=== PATIENT | male | born 1940 | race Caucasian/White ===

== ENCOUNTER 2017-05-11 14:06 | Inpatient (IN) | payer MEDICARE ==
[~2017-05-11] VITALS: Ht 182.9 cm; Wt 81.0 kg
[~2017-05-11 14:06] MED LIST: Calcium Carbon500 MG PO; DOCU100 PO; ENOX100I SC; LIDO700A20 TOP; MILK OF MAGNESIA PO; PANT20 PO; Percocet 5-3251 EACH PO; WARF10 PO; XARELTO15 MG PO; Zestril40 MG PO
[2017-05-11 15:06] LABS: International Normalized Ratio 1.44; Prothrombin Time Results 15.1 Sec (9.7-11.5)
[2017-05-11 15:09] LABS: Alanine Aminotransfer (ALT/SGP 25 U/L (12-78); Albumin, Blood 3.7 g/dL (3.4-5.0); Alk Phos 91 U/L (50-136); Anion Gap 14 mmol/L (6-16); Aspartate Aminotrans (AST/SGOT 20 U/L (12-37); Bilirubin, Total 0.5 mg/dL (0.1-1.0); Blood Urea Nitrogen 25 mg/dL (8-24); Bun/Creatinine Ratio 25.3 (12.0-20.0); CO2, Blood 20 mmol/L (21-32); Calcium, Blood 8.9 mg/dL (8.5-10.1); Chloride, Blood 103 mmol/L (98-108); Creatinine, Blood 0.99 mg/dL (0.60-1.20); Globulin, Blood 3.6 g/dL (2.2-4.0); Glomerular Filtration Rate >60 (60-); Glucose, Blood 171 mg/dL (70-99); Potassium, Blood 3.7 mmol/L (3.5-5.5); Sodium, Blood 137 mmol/L (136-145); Total Protein, Blood 7.3 g/dL (6.4-8.2); Troponin I <0.015 ng/mL (0.000-0.040)
[2017-05-11 15:14] LABS: BASOPHILS ABSOLUTE AUTO 0.07 K/mm3 (0.00-0.23); BASOPHILS PERCENT AUTO 1 % (0-2); EOSINOPHILS ABSOLUTE AUTO 0.03 K/mm3 (0.00-0.68); EOSINOPHILS PERCENT AUTO 0 % (0-6); IMMATURE GRAN ABSOLUTE AUTO 0.05 K/mm3 (0.00-0.10); IMMATURE GRAN PERCENT AUTO 1 % (0-1); LYMPHOCYTES PERCENT AUTO 12 % (21-46); MONOCYTES ABSOLUTE AUTO 0.63 K/mm3 (0.16-1.47); MONOCYTES PERCENT AUTO 7 % (4-13); Mean Corpuscular HGB 23.1 pg (26.0-34.0); Mean Corpuscular Volume 83 fL (80-100); Mean Platelet Volume 9.4 fL (9.1-12.4); NEUTROPHILS ABSOLUTE AUTO 7.35 K/mm3 (1.96-9.15); NEUTROPHILS PERCENT AUTO 80 % (41-73); Platelet Count 452 K/mm3 (150-400); RDW Coefficient Variation 16.6 % (11.7-14.2); RDW Standard Deviation 49.2 fL (35.1-46.3); Red Blood Cell Count 2.42 M/mm3 (4.30-5.90); White Blood Cell Count 9.23 K/mm3 (4.00-11.30)
[2017-05-11 15:16] LABS: Hemoglobin 5.6 g/dL (13.5-17.5)
[2017-05-11 18:12] LABS: Thyroid Stimulating Hormone 2.89 uIU/mL (0.360-4.800)
[2017-05-12 04:46] LABS: BASOPHILS ABSOLUTE AUTO 0.04 K/mm3 (0.00-0.23); BASOPHILS PERCENT AUTO 1 % (0-2); EOSINOPHILS ABSOLUTE AUTO 0.09 K/mm3 (0.00-0.68); EOSINOPHILS PERCENT AUTO 2 % (0-6); Hematocrit 22.9 % (37.0-53.0); IMMATURE GRAN ABSOLUTE AUTO 0.02 K/mm3 (0.00-0.10); IMMATURE GRAN PERCENT AUTO 0 % (0-1); LYMPHOCYTES ABSOLUTE AUTO 1.33 K/mm3 (0.84-5.20); LYMPHOCYTES PERCENT AUTO 22 % (21-46); MONOCYTES ABSOLUTE AUTO 0.76 K/mm3 (0.16-1.47); MONOCYTES PERCENT AUTO 13 % (4-13); Mean Corpuscular HGB 25.7 pg (26.0-34.0); Mean Corpuscular HGB Conc 30.6 g/dL (31.5-36.5); Mean Corpuscular Volume 84 fL (80-100); Mean Platelet Volume 9.6 fL (9.1-12.4); NEUTROPHILS ABSOLUTE AUTO 3.73 K/mm3 (1.96-9.15); NEUTROPHILS PERCENT AUTO 63 % (41-73); Platelet Count 316 K/mm3 (150-400); RDW Coefficient Variation 17.3 % (11.7-14.2); RDW Standard Deviation 52.6 fL (35.1-46.3); Red Blood Cell Count 2.72 M/mm3 (4.30-5.90); White Blood Cell Count 5.97 K/mm3 (4.00-11.30)
[2017-05-12 05:01] LABS: Alanine Aminotransfer (ALT/SGP 17 U/L (12-78); Albumin, Blood 3.2 g/dL (3.4-5.0); Albumin/Globulin Ratio 1.1 (0.8-1.8); Alk Phos 72 U/L (50-136); Anion Gap 7 mmol/L (6-16); Aspartate Aminotrans (AST/SGOT 12 U/L (12-37); Bilirubin, Total 0.7 mg/dL (0.1-1.0); Blood Urea Nitrogen 20 mg/dL (8-24); Bun/Creatinine Ratio 23.6 (12.0-20.0); CO2, Blood 25 mmol/L (21-32); Calcium, Blood 8.8 mg/dL (8.5-10.1); Chloride, Blood 106 mmol/L (98-108); Creatinine, Blood 0.85 mg/dL (0.60-1.20); Globulin, Blood 2.8 g/dL (2.2-4.0); Glomerular Filtration Rate >60 (60-); Glucose, Blood 106 mg/dL (70-99); Potassium, Blood 3.6 mmol/L (3.5-5.5); Sodium, Blood 138 mmol/L (136-145)
[2017-05-13 04:37] LABS: BASOPHILS ABSOLUTE AUTO 0.03 K/mm3 (0.00-0.23); BASOPHILS PERCENT AUTO 1 % (0-2); EOSINOPHILS PERCENT AUTO 2 % (0-6); Hematocrit 25.5 % (37.0-53.0); Hemoglobin 7.8 g/dL (13.5-17.5); IMMATURE GRAN ABSOLUTE AUTO 0.01 K/mm3 (0.00-0.10); IMMATURE GRAN PERCENT AUTO 0 % (0-1); LYMPHOCYTES ABSOLUTE AUTO 1.08 K/mm3 (0.84-5.20); LYMPHOCYTES PERCENT AUTO 20 % (21-46); MONOCYTES ABSOLUTE AUTO 0.77 K/mm3 (0.16-1.47); MONOCYTES PERCENT AUTO 14 % (4-13); Mean Corpuscular HGB 25.7 pg (26.0-34.0); Mean Corpuscular HGB Conc 30.6 g/dL (31.5-36.5); Mean Corpuscular Volume 84 fL (80-100); Mean Platelet Volume 9.5 fL (9.1-12.4); NEUTROPHILS ABSOLUTE AUTO 3.48 K/mm3 (1.96-9.15); NEUTROPHILS PERCENT AUTO 64 % (41-73); Platelet Count 264 K/mm3 (150-400); RDW Coefficient Variation 17.7 % (11.7-14.2); RDW Standard Deviation 52.6 fL (35.1-46.3); Red Blood Cell Count 3.04 M/mm3 (4.30-5.90); White Blood Cell Count 5.47 K/mm3 (4.00-11.30)
[2017-05-13 04:57] LABS: Alanine Aminotransfer (ALT/SGP 17 U/L (12-78); Albumin, Blood 3.1 g/dL (3.4-5.0); Albumin/Globulin Ratio 1.1 (0.8-1.8); Alk Phos 70 U/L (50-136); Anion Gap 8 mmol/L (6-16); Aspartate Aminotrans (AST/SGOT 13 U/L (12-37); Bilirubin, Total 0.4 mg/dL (0.1-1.0); Blood Urea Nitrogen 14 mg/dL (8-24); Bun/Creatinine Ratio 15.4 (12.0-20.0); CO2, Blood 25 mmol/L (21-32); Calcium, Blood 8.5 mg/dL (8.5-10.1); Chloride, Blood 107 mmol/L (98-108); Creatinine, Blood 0.91 mg/dL (0.60-1.20); Globulin, Blood 2.9 g/dL (2.2-4.0); Glomerular Filtration Rate >60 (60-); Glucose, Blood 116 mg/dL (70-99); Potassium, Blood 3.9 mmol/L (3.5-5.5); Sodium, Blood 140 mmol/L (136-145)
[2017-05-14 05:00] LABS: BASOPHILS ABSOLUTE AUTO 0.05 K/mm3 (0.00-0.23); BASOPHILS PERCENT AUTO 1 % (0-2); EOSINOPHILS ABSOLUTE AUTO 0.18 K/mm3 (0.00-0.68); EOSINOPHILS PERCENT AUTO 3 % (0-6); Hematocrit 31.1 % (37.0-53.0); Hemoglobin 9.4 g/dL (13.5-17.5); IMMATURE GRAN ABSOLUTE AUTO 0.04 K/mm3 (0.00-0.10); IMMATURE GRAN PERCENT AUTO 1 % (0-1); LYMPHOCYTES ABSOLUTE AUTO 1.11 K/mm3 (0.84-5.20); LYMPHOCYTES PERCENT AUTO 17 % (21-46); MONOCYTES ABSOLUTE AUTO 0.76 K/mm3 (0.16-1.47); MONOCYTES PERCENT AUTO 12 % (4-13); Mean Corpuscular HGB 26.8 pg (26.0-34.0); Mean Corpuscular HGB Conc 30.2 g/dL (31.5-36.5); NEUTROPHILS ABSOLUTE AUTO 4.36 K/mm3 (1.96-9.15); NEUTROPHILS PERCENT AUTO 67 % (41-73); Platelet Count 233 K/mm3 (150-400); RDW Coefficient Variation 17.8 % (11.7-14.2); RDW Standard Deviation 56.4 fL (35.1-46.3); Red Blood Cell Count 3.51 M/mm3 (4.30-5.90)
[2017-05-14 05:06] LABS: Mean Corpuscular Volume 89 fL (80-100)
[2017-05-14] MEDS ORDERED: LISI5 PO (11:18)
[2017-05-14] MEDS ORDERED: Ferrous Sulfat325 M2 PO (11:24)
== END 2017-05-14 11:53 | disposition home or self-care (01) | DRG 811 ==
LOC: ER 14:06 → MEDS 16:41 → ENPENDDIS 05-14 10:00 → MEDS 05-14 11:53
PROVIDERS: Internal Medicine; Physician Assistant
PROC: 30233N1 Transfusion of Nonautologous Red Blood Cells into Peripheral Vein, Percutaneous Approach (ICD-10-PCS; principal; 2017-05-11)
DX: D50.0 Iron deficiency anemia secondary to blood loss (chronic) (principal); I26.99 Other pulmonary embolism without acute cor pulmonale; K92.1 Melena; I10 Essential (primary) hypertension; J44.9 Chronic obstructive pulmonary disease, unspecified; F10.21 Alcohol dependence, in remission; F17.290 Nicotine dependence, other tobacco product, uncomplicated; Z79.01 Long term (current) use of anticoagulants
CPT/HCPCS: 36415; 36430; 71020; 71260; 73562-LT; 74177; 80053; 82272; 82607; 82728; 82746; 83540; 83550; 83880; 84443; 84484; 85025; 85610; 86850; 86900; 86901; 86923; 93005; 93010; 99285; J2916; J3420; J7040; P9016; Q9967

== ENCOUNTER 2017-10-29 10:38 | Emergency (ER) | payer MEDICARE ==
[~2017-10-29] VITALS: Ht 175.3 cm; Wt 88.5 kg
[~2017-10-29 10:38] MED LIST changes: +Ferrous Sulfat325 M2 PO; +LISI5 PO
[2017-10-29 11:42] LABS: BASOPHILS ABSOLUTE AUTO 0.04 K/mm3 (0.00-0.23); BASOPHILS PERCENT AUTO 1 % (0-2); EOSINOPHILS PERCENT AUTO 2 % (0-6); Hematocrit 37.7 % (37.0-53.0); Hemoglobin 12.6 g/dL (13.5-17.5); IMMATURE GRAN ABSOLUTE AUTO 0.03 K/mm3 (0.00-0.10); IMMATURE GRAN PERCENT AUTO 1 % (0-1); LYMPHOCYTES ABSOLUTE AUTO 1.23 K/mm3 (0.84-5.20); LYMPHOCYTES PERCENT AUTO 29 % (21-46); MONOCYTES ABSOLUTE AUTO 0.42 K/mm3 (0.16-1.47); MONOCYTES PERCENT AUTO 10 % (4-13); Mean Corpuscular HGB 31.8 pg (26.0-34.0); Mean Corpuscular HGB Conc 33.4 g/dL (31.5-36.5); Mean Corpuscular Volume 95 fL (80-100); Mean Platelet Volume 9.1 fL (9.1-12.4); NEUTROPHILS ABSOLUTE AUTO 2.42 K/mm3 (1.96-9.15); NEUTROPHILS PERCENT AUTO 57 % (41-73); Platelet Count 211 K/mm3 (150-400); RDW Coefficient Variation 14.1 % (11.7-14.2); RDW Standard Deviation 49.3 fL (35.1-46.3); Red Blood Cell Count 3.96 M/mm3 (4.30-5.90); White Blood Cell Count 4.24 K/mm3 (4.00-11.30)
[2017-10-29 11:53] LABS: Alanine Aminotransfer (ALT/SGP 69 U/L (12-78); Albumin/Globulin Ratio 0.9 (0.8-1.8); Alk Phos 123 U/L (50-136); Anion Gap 11 mmol/L (6-16); Aspartate Aminotrans (AST/SGOT 83 U/L (12-37); Bilirubin, Total 0.3 mg/dL (0.1-1.0); Blood Urea Nitrogen 7 mg/dL (8-24); Bun/Creatinine Ratio 10.1 (12.0-20.0); CO2, Blood 24 mmol/L (21-32); Calcium, Blood 8.4 mg/dL (8.5-10.1); Chloride, Blood 112 mmol/L (98-108); Creatinine, Blood 0.69 mg/dL (0.60-1.20); Ethanol (Alcohol), Blood, Med 243 mg/dL; Globulin, Blood 3.3 g/dL (2.2-4.0); Glomerular Filtration Rate >60 (60-); Glucose, Blood 82 mg/dL (70-99); Potassium, Blood 3.4 mmol/L (3.5-5.5); Salicylate 3.9 mg/dL (2.8-20.0); Sodium, Blood 147 mmol/L (136-145); Total Protein, Blood 6.3 g/dL (6.4-8.2)
[2017-10-29 12:36] LABS: U Amphetamine Screen Not Detected; U Barbituate Screen Not Detected; U Benzodiazapine Screen Not Detected; U Buprenorphine Screen Not Detected; U Cannabinoids Screen Not Detected; U Cocaine Screen Not Detected; U Methadone Screen Not Detected; U Methamphetamine Screen Not Detected; U Opiates Screen Not Detected; U Oxycodone Screen Not Detected; U Phencyclidine Screen Not Detected; U Propoxyphene Screen Not Detected
== END 2017-10-29 12:52 | disposition home or self-care (01) ==
LOC: ER 10:38
PROVIDERS: Emergency Medicine; Physician Assistant
DX: F10.129 Alcohol abuse with intoxication, unspecified (principal); I10 Essential (primary) hypertension; D64.9 Anemia, unspecified; J44.9 Chronic obstructive pulmonary disease, unspecified; F17.290 Nicotine dependence, other tobacco product, uncomplicated; Z79.899 Other long term (current) drug therapy; Y90.8 Blood alcohol level of 240 mg/100 ml or more
CPT/HCPCS: 36415; 80053; 85025; 99283; G0480

== ENCOUNTER 2018-01-01 14:23 | Emergency (ER) | payer MEDICARE ==
[~2018-01-01] VITALS: Ht 188 cm; Wt 81.7 kg
[2018-01-01 15:11] LABS: BASOPHILS ABSOLUTE AUTO 0.05 K/mm3 (0.00-0.23); BASOPHILS PERCENT AUTO 1 % (0-2); EOSINOPHILS PERCENT AUTO 2 % (0-6); Hematocrit 36.6 % (37.0-53.0); Hemoglobin 12.1 g/dL (13.5-17.5); IMMATURE GRAN ABSOLUTE AUTO 0.02 K/mm3 (0.00-0.10); IMMATURE GRAN PERCENT AUTO 0 % (0-1); LYMPHOCYTES PERCENT AUTO 32 % (21-46); MONOCYTES ABSOLUTE AUTO 0.44 K/mm3 (0.16-1.47); MONOCYTES PERCENT AUTO 7 % (4-13); Mean Corpuscular HGB 30.4 pg (26.0-34.0); Mean Corpuscular HGB Conc 33.1 g/dL (31.5-36.5); Mean Corpuscular Volume 92 fL (80-100); Mean Platelet Volume 8.6 fL (9.1-12.4); NEUTROPHILS ABSOLUTE AUTO 3.57 K/mm3 (1.96-9.15); NEUTROPHILS PERCENT AUTO 58 % (41-73); Platelet Count 259 K/mm3 (150-400); RDW Coefficient Variation 14.1 % (11.7-14.2); RDW Standard Deviation 47.8 fL (35.1-46.3); Red Blood Cell Count 3.98 M/mm3 (4.30-5.90); White Blood Cell Count 6.18 K/mm3 (4.00-11.30)
[2018-01-01 15:17] LABS: Alanine Aminotransfer (ALT/SGP 62 U/L (12-78); Albumin, Blood 3.6 g/dL (3.4-5.0); Albumin/Globulin Ratio 0.9 (0.8-1.8); Alk Phos 131 U/L (50-136); Anion Gap 15 mmol/L (6-16); Aspartate Aminotrans (AST/SGOT 81 U/L (12-37); Bilirubin, Total 0.5 mg/dL (0.1-1.0); Blood Urea Nitrogen 10 mg/dL (8-24); CO2, Blood 22 mmol/L (21-32); Calcium, Blood 8.5 mg/dL (8.5-10.1); Chloride, Blood 105 mmol/L (98-108); Creatinine, Blood 0.59 mg/dL (0.60-1.20); Ethanol (Alcohol), Blood, Med 195 mg/dL; Globulin, Blood 3.9 g/dL (2.2-4.0); Glomerular Filtration Rate >60 (60-); Glucose, Blood 90 mg/dL (70-99); Potassium, Blood 3.6 mmol/L (3.5-5.5); Sodium, Blood 142 mmol/L (136-145); Total Protein, Blood 7.5 g/dL (6.4-8.2); Troponin I <0.015 ng/mL (0.000-0.040)
[2018-01-01 15:24] LABS: Prothrombin Time Results 10.3 Sec (9.7-11.5)
[2018-01-01 17:01] LABS: Source, Urine Voided
[2018-01-01 17:07] LABS: Appearance, Urine Clear (Clear); Bilirubin, Urine Neg (Neg); Blood, Urine Neg (Neg); Color, Urine Yellow (P-Yellow); Glucose Qualitative, Urine Neg (Neg); Ketones, Urine 2+ (Neg); Leukocyte Esterase, Urine Neg (Neg); Nitrite, Urine Neg (Neg); Protein, Urine 2+ (Neg); Urobilinogen, Urine 1+ (Normal)
[2018-01-01 17:16] LABS: Red Blood Cells, Urine Not Seen /hpf (0-2); Squamous Epithelial Cells Rare /hpf (Few); White Blood Cells, Urine Not Seen /hpf (0-5)
[2018-01-01 17:17] LABS: Bacteria Rare /hpf
== END 2018-01-01 19:47 | disposition home or self-care (01) ==
LOC: ER 14:23
PROVIDERS: Nurse Practitioner Family
DX: Z04.3 Encounter for examination and observation following other accident (principal); I10 Essential (primary) hypertension; F17.200 Nicotine dependence, unspecified, uncomplicated; W18.30XA Fall on same level, unspecified, initial encounter
CPT/HCPCS: 70450; 71046; 72100; 80053; 81000; 81001; 84484; 85025; 85610; 93005; 93010; 96361; 96374; 96375; 99285-25; G0480; J1885; J2405; J7030

== ENCOUNTER 2018-06-03 11:54 | Observation (INO) | payer MEDICARE ==
[~2018-06-03] VITALS: Ht 182.9 cm; Wt 71.3 kg
[2018-06-03 13:08] LABS: BASOPHILS ABSOLUTE AUTO 0.04 K/mm3 (0.00-0.23); BASOPHILS PERCENT AUTO 1 % (0-2); EOSINOPHILS ABSOLUTE AUTO 0.04 K/mm3 (0.00-0.68); EOSINOPHILS PERCENT AUTO 1 % (0-6); Hematocrit 31.2 % (37.0-53.0); Hemoglobin 9.8 g/dL (13.5-17.5); IMMATURE GRAN ABSOLUTE AUTO 0.02 K/mm3 (0.00-0.10); IMMATURE GRAN PERCENT AUTO 1 % (0-1); LYMPHOCYTES ABSOLUTE AUTO 0.61 K/mm3 (0.84-5.20); LYMPHOCYTES PERCENT AUTO 15 % (21-46); MONOCYTES ABSOLUTE AUTO 0.37 K/mm3 (0.16-1.47); MONOCYTES PERCENT AUTO 9 % (4-13); Mean Corpuscular HGB 27.2 pg (26.0-34.0); Mean Corpuscular HGB Conc 31.4 g/dL (31.5-36.5); Mean Corpuscular Volume 87 fL (80-100); Mean Platelet Volume 9.4 fL (9.1-12.4); NEUTROPHILS ABSOLUTE AUTO 3.11 K/mm3 (1.96-9.15); NEUTROPHILS PERCENT AUTO 74 % (41-73); Platelet Count 144 K/mm3 (150-400); RDW Coefficient Variation 17.8 % (11.7-14.2); White Blood Cell Count 4.19 K/mm3 (4.00-11.30)
[2018-06-03 13:15] LABS: Source, Urine Clean Catch
[2018-06-03 13:24] LABS: Bilirubin, Urine Neg (Neg); Blood, Urine Neg (Neg); Glucose Qualitative, Urine Neg (Neg); Ketones, Urine 3+ (Neg); Leukocyte Esterase, Urine Neg (Neg); Nitrite, Urine Neg (Neg); Protein, Urine 1+ (Neg); Specific Gravity, Urine 1.015 (1.003-1.022); Urobilinogen, Urine 3+ (Normal); pH, Urine 6.5 (5.0-8.0)
[2018-06-03 13:35] LABS: CPK Creatine Kinase 69 U/L (39-308)
[2018-06-03 13:37] LABS: Acetaminophen, Random <2.0 ug/mL (10.0-30.0); Alanine Aminotransfer (ALT/SGP 70 U/L (12-78); Albumin, Blood 3.2 g/dL (3.4-5.0); Alk Phos 106 U/L (50-136); Anion Gap 13 mmol/L (6-16); Aspartate Aminotrans (AST/SGOT 101 U/L (12-37); Bilirubin, Total 0.5 mg/dL (0.1-1.0); Blood Urea Nitrogen 14 mg/dL (8-24); Bun/Creatinine Ratio 21.6 (12.0-20.0); CO2, Blood 23 mmol/L (21-32); Calcium, Blood 7.9 mg/dL (8.5-10.1); Chloride, Blood 104 mmol/L (98-108); Creatinine, Blood 0.65 mg/dL (0.60-1.20); Ethanol (Alcohol), Blood, Med 114 mg/dL; Globulin, Blood 3.2 g/dL (2.2-4.0); Glomerular Filtration Rate >60 (60-); Glucose, Blood 128 mg/dL (70-99); Potassium, Blood 3.4 mmol/L (3.5-5.5); Salicylate 3.4 mg/dL (2.8-20.0); Sodium, Blood 140 mmol/L (136-145); Total Protein, Blood 6.4 g/dL (6.4-8.2)
[2018-06-03 13:41] LABS: Appearance, Urine Clear (Clear); Color, Urine Yellow (P-Yellow)
[2018-06-03 13:43] LABS: U Amphetamine Screen Not Detected; U Barbituate Screen Not Detected; U Benzodiazapine Screen Not Detected; U Buprenorphine Screen Not Detected; U Cannabinoids Screen Not Detected; U Cocaine Screen Not Detected; U Methadone Screen Not Detected; U Methamphetamine Screen Not Detected; U Opiates Screen Not Detected; U Oxycodone Screen Not Detected; U Phencyclidine Screen Not Detected; U Propoxyphene Screen Not Detected
[2018-06-05 16:33] LABS: Hematocrit 29.5 % (37.0-53.0); Hemoglobin 9.2 g/dL (13.5-17.5); Mean Corpuscular HGB 26.8 pg (26.0-34.0); Mean Corpuscular HGB Conc 31.2 g/dL (31.5-36.5); Mean Corpuscular Volume 86 fL (80-100); Mean Platelet Volume 10.2 fL (9.1-12.4); Platelet Count 110 K/mm3 (150-400); RDW Coefficient Variation 17.8 % (11.7-14.2); RDW Standard Deviation 56.2 fL (35.1-46.3); Red Blood Cell Count 3.43 M/mm3 (4.30-5.90); White Blood Cell Count 3.13 K/mm3 (4.00-11.30)
[2018-06-05 16:52] LABS: Anion Gap 7 mmol/L (6-16); Blood Urea Nitrogen 10 mg/dL (8-24); Bun/Creatinine Ratio 11.5 (12.0-20.0); CO2, Blood 26 mmol/L (21-32); Calcium, Blood 8.4 mg/dL (8.5-10.1); Chloride, Blood 100 mmol/L (98-108); Creatinine, Blood 0.87 mg/dL (0.60-1.20); Glomerular Filtration Rate >60 (60-); Glucose, Blood 135 mg/dL (70-99); Potassium, Blood 4.1 mmol/L (3.5-5.5); Sodium, Blood 133 mmol/L (136-145)
[2018-06-05 16:59] LABS: BAND PERCENT MAN 1 % (0-8); BASOPHILS ABSOLUTE MAN 0.03 K/mm3 (0.00-0.23); BASOPHILS PERCENT MAN 1 % (0-2); EOSINOPHILS ABSOLUTE MAN 0.03 K/mm3 (0.00-0.68); EOSINOPHILS PERCENT MAN 1 % (0-6); LYMPHOCYTES ABSOLUTE MAN 0.15 K/mm3 (0.84-5.20); LYMPHOCYTES PERCENT MAN 5 % (21-46); MONOCYTES ABSOLUTE MAN 0.15 K/mm3 (0.16-1.47); MONOCYTES PERCENT MAN 5 % (4-13); NEUTROPHILS ABSOLUTE MAN 2.75 K/mm3 (1.96-9.15); SEG NEUTROPHILS PERCENT MAN 87 % (41-73); TOTAL CELLS COUNTED 100
--- NOTE | 2018-06-05 19:34 | NUR ---
PATIENT IS A NEW ADMIT FROM DAY SHIFT RN AT SHIFT CHANGE. ONE PERSON TRANSFER FROM [facility] TO BED. PATIENT ORIENTED TO ROOM AND CALL LIGHT SYSTEM. FOLIC ACID INFUSING AT 100 mL/HR. PATIENT WATCHING TV AND ON PHONE WITH FAMILY. POSSIBLE TRANSFER BACK TO SCU PER CHARGE AMERICA STANLEY. CALL LIGHT IN REACH.
--- NOTE | 2018-06-05 21:23 | NUR ---
transfer report from Heri STANLEY on PT being transferred to room 344 due to high fall risk. Regulatory report revieved. Await transfer
--- NOTE | 2018-06-05 21:39 | NUR ---
PATIENT TRANSFER TO SCU 344. REPORTS GIVEN TO GONZALES STANLEY.
--- NOTE | 2018-06-06 02:00 | NUR ---
PT ADMITTED FROM ER AND WAS INITALLY ADMITTED TO ROOM 355 AND TRANSFERRED TO MY CARE LATER . 77 YEAR OLD MALE WHO WAS [facility] TO ER 06/03/18 AND HAD CRISIS ADMIT TO BEHAVIORAL HEALTH BED UNTIL TODAY WHEN HE WAS GOING TO BE DC HOME TO BE ADMITTED TO [facility] BUT HE FELL IN ER AND IS TOO UNSTEADY TO DC HOME. HE DENIES AND PREVIOUS OR CURRENT SUICIDAL IDEATION EXCEPT SAID HE DID THEATEN TO SHOOT HIMSELF PRIOR TO ER ADMIT. HE WAS CLEARED FOR DISCHARGE BY PSYCH. COOPERATIVE AND NO ATTEMPTS AT SELF HARM. PT SAID A BOTTLE OF WISKEY WOULD LAST SEVERAL WEEKS AND HIS LAST DRINK WAS A WEEK OR 6 DAYS AGO. HE FELL AT HOME LAST MONDAY AND HIT RIGHT SIDE OF HEAD. PT HAS SCHEDULED MOTRIN 600 MG AND SAYS HE IS UNABLE TO TAKE TYLENOL. DR BABCOCK UPDATED AND ALSO PTS CO HEARTBURN. MAALOX 15 TO 30 ML Q 4 HRS PRN RX AND ULTRAM 50 MG PO Q 6 HOURS PRN RX. USES URINAL NO ATTEMPTS TO GET OUT OF BED. FALL PRECAUTIONS CONTINUE.
[2018-06-06 05:18] LABS: Hematocrit 27.2 % (37.0-53.0); Hemoglobin 8.5 g/dL (13.5-17.5)
[2018-06-06 05:43] LABS: Anion Gap 8 mmol/L (6-16); Blood Urea Nitrogen 8 mg/dL (8-24); Bun/Creatinine Ratio 12.5 (12.0-20.0); CO2, Blood 24 mmol/L (21-32); Chloride, Blood 103 mmol/L (98-108); Creatinine, Blood 0.64 mg/dL (0.60-1.20); Glomerular Filtration Rate >60 (60-); Glucose, Blood 121 mg/dL (70-99); Potassium, Blood 4.2 mmol/L (3.5-5.5); Sodium, Blood 135 mmol/L (136-145)
--- NOTE | 2018-06-06 06:41 | NUR ---
PT WITH NO ATTEMPTS AT SELF HARM, PLEASANT AND COOPERATIVE. WEAK AND HBG AND HCT LOW. PT SATES RECIEVED 3 UNITS PRBC IN DECEMBER 2017 WITH GI BLEED. DENIES ACUTE DEPRESSION AT THIS TIME. SAYS HE MISSES VITA OF 53 YEARS WHO IS IN [facility] AFTER A CVA.
--- NOTE | 2018-06-06 10:38 | NUR ---
DR ERICKSONTRATE IN TO SEE PT.
--- NOTE | 2018-06-06 10:42 | NUR ---
PT NOTED TO HAVE HGN OF 8.5 THIS AM WITH HX OF GI BLEEDS. PT HAS IBUPROFEN AND LOVENOX ORDERED. SPOKE WITH DR CANALES, BOTH DC'D AND SCD'S ORDERED.
--- NOTE | 2018-06-06 17:35 | NUR ---
SHIFT SUMMARY- PT A/OX3. PT MEDICATED X1 WITH TRAMADOL TO PAIN TO LEFT BACK AND HEAD. PT DENIES ANY OTHER COMPLAINTS. PT/OT VALENTIN COMPLETED. 1 ASSIST TO CHAIR BUT PER THERAPY WAIT ON AMBULATING FOR NOW. PT WITH UNSTEADY GAIT. SNF RECOMMENDED UPON DISCHARGE. LS CLEAR, ON RA. HRR. CIWA 4-5 T/O SHIFT. PT PLEASANT AND COOPERATIVE WITH CARE. NO OTHER ACUTE CHANGES THIS SHIFT.
--- NOTE | 2018-06-06 17:45 | NUR ---
PT REFUSED BOTH FOR LUNCH AND DINNER TO GET OUT OF BED TO THE CHAIR EVEN THOUGH PT/OT RECOMMENDED WELL NURSING RECOMMENDED TO GET OUT OF BED PT CONT TO REFUSE.
[2018-06-07 04:51] LABS: BASOPHILS ABSOLUTE AUTO 0.02 K/mm3 (0.00-0.23); BASOPHILS PERCENT AUTO 1 % (0-2); EOSINOPHILS ABSOLUTE AUTO 0.09 K/mm3 (0.00-0.68); EOSINOPHILS PERCENT AUTO 3 % (0-6); Hematocrit 29.3 % (37.0-53.0); Hemoglobin 9.1 g/dL (13.5-17.5); IMMATURE GRAN ABSOLUTE AUTO 0.02 K/mm3 (0.00-0.10); IMMATURE GRAN PERCENT AUTO 1 % (0-1); LYMPHOCYTES ABSOLUTE AUTO 0.65 K/mm3 (0.84-5.20); LYMPHOCYTES PERCENT AUTO 19 % (21-46); MONOCYTES ABSOLUTE AUTO 0.36 K/mm3 (0.16-1.47); MONOCYTES PERCENT AUTO 11 % (4-13); Mean Corpuscular HGB 27.1 pg (26.0-34.0); Mean Corpuscular HGB Conc 31.1 g/dL (31.5-36.5); Mean Corpuscular Volume 87 fL (80-100); Mean Platelet Volume 10.2 fL (9.1-12.4); NEUTROPHILS ABSOLUTE AUTO 2.26 K/mm3 (1.96-9.15); NEUTROPHILS PERCENT AUTO 67 % (41-73); Platelet Count 127 K/mm3 (150-400); RDW Coefficient Variation 17.3 % (11.7-14.2); RDW Standard Deviation 55.5 fL (35.1-46.3); Red Blood Cell Count 3.36 M/mm3 (4.30-5.90)
[2018-06-07 05:15] LABS: Anion Gap 6 mmol/L (6-16); Blood Urea Nitrogen 11 mg/dL (8-24); Bun/Creatinine Ratio 13.5 (12.0-20.0); CO2, Blood 27 mmol/L (21-32); Chloride, Blood 102 mmol/L (98-108); Creatinine, Blood 0.81 mg/dL (0.60-1.20); Glomerular Filtration Rate >60 (60-); Glucose, Blood 95 mg/dL (70-99); Potassium, Blood 4.3 mmol/L (3.5-5.5); Sodium, Blood 135 mmol/L (136-145)
--- NOTE | 2018-06-07 06:11 | NUR ---
SHIFT SUMMARY PT HAS SLEPT WELL DURING THE NIGHT, CIWA'S 0. BANANA BAG INFUSED, SALINE LOCK LEFT IN PLACE. NOACUTE CHANGES NOTED. WILL CONTINUE TO MONITOR.
--- NOTE | 2018-06-07 16:52 | NUR ---
SHIFT SUMMARY- PT A/O X3, PT PLEASANT T/O THE SHIFT. PT MEDICATED X1 FOR BACK AND RIGHT HEAD PAIN. CIWA STABLE. PT HAS REFUSED TO GET OOB OR TO WORK WITH THERAPY OOB. PT DID GET UP TO BSC WITH 1 ASSIST FOR BM THIS AM. LS CLEAR, ON RA. HRR. NO OTHER ACUTE CHANGES THIS SHIFT.
--- NOTE | 2018-06-08 04:54 | NUR ---
SHIFT SUMMARY PT HAS HAD AN UNEVENTFUL NIGHT, NO ACUTE CHANGES NOTED. WILL CONTINUE TO MONITOR.
[2018-06-08 05:00] LABS: BASOPHILS ABSOLUTE AUTO 0.02 K/mm3 (0.00-0.23); BASOPHILS PERCENT AUTO 1 % (0-2); EOSINOPHILS ABSOLUTE AUTO 0.08 K/mm3 (0.00-0.68); EOSINOPHILS PERCENT AUTO 2 % (0-6); Hematocrit 29.2 % (37.0-53.0); Hemoglobin 8.9 g/dL (13.5-17.5); IMMATURE GRAN ABSOLUTE AUTO 0.02 K/mm3 (0.00-0.10); IMMATURE GRAN PERCENT AUTO 1 % (0-1); LYMPHOCYTES ABSOLUTE AUTO 0.84 K/mm3 (0.84-5.20); LYMPHOCYTES PERCENT AUTO 20 % (21-46); MONOCYTES PERCENT AUTO 14 % (4-13); Mean Corpuscular HGB 26.9 pg (26.0-34.0); Mean Corpuscular HGB Conc 30.5 g/dL (31.5-36.5); Mean Corpuscular Volume 88 fL (80-100); Mean Platelet Volume 10.5 fL (9.1-12.4); NEUTROPHILS ABSOLUTE AUTO 2.67 K/mm3 (1.96-9.15); NEUTROPHILS PERCENT AUTO 63 % (41-73); Platelet Count 165 K/mm3 (150-400); RDW Coefficient Variation 17.9 % (11.7-14.2); RDW Standard Deviation 56.9 fL (35.1-46.3); Red Blood Cell Count 3.31 M/mm3 (4.30-5.90); White Blood Cell Count 4.23 K/mm3 (4.00-11.30)
--- NOTE | 2018-06-08 16:40 | NUR ---
PATIENT A/OX4, UP WITH FWW AND 1 ASSIST TODAY. WORKED WITH PT/OT TODAY AND WAS ABLE TO WALK OUT INTO HALLS. TOLERATING REGULAR DIET. VSS. REPORTS PAIN TO L FLANK FROM RECENT FALL AND HEADACHE. TRAMADOL AND TYLENOL GIVEN TO TREAT. CALM AND COOPERATIVE WITH CARE, CALLS APPROPRIATELY FOR ASSISTANCE. NO ACUTE CHANGES THIS SHIFT.
--- NOTE | 2018-06-08 20:48 | NUR ---
PATIENT GETTING IRRITABLE ON PHONE WITH YELLING THAT SHE CAN'T HEAR HIM. PATIENT CALM AT OTHER TIMES ON PHONE. PATIENT FINISHED WITH CALL AND REPORTS HE'LL TRY TO GO TO BED EARLY. CALL LIGHT IN REACH.
--- NOTE | 2018-06-09 03:02 | NUR ---
SHIFT SUMMARY PATIENT HAD NO ACUTE CHANGES OBSERVED THIS SHIFT. AXOX 3 AND ONE ASSIST W/FWW TO BSC. USES URINAL AT BEDSIDE. PIV REMAINS INTACT. DENIES PAIN, SOB, AND N/V. CIWA IS ZERO. PATIENT IS CALM AND COOPERATIVE UNLESS HE CALLS HIS ON PHONE. PATIENT BECOMES IRRITABLE WHEN HIS CAN NOT HEAR OR UNDERSTAND HIM AND HE YELLS AT HER. YELLING ESCULATES MOMENTARILY AND HE BECOMES CALM AGAIN TALKING TO HER. PATIENT WAS ABLE TO WATCH TV BEFORE GOING TO BED. VSS/AFEBRILE CALL LIGHT IN REACH. BED IN LOWEST POSITION. WILL CONTINUE TO MONITOR UNTIL DAY SHIFT NURSE ASSUMES CARE.
--- NOTE | 2018-06-09 16:51 | NUR ---
REMOVED RFA IV CATHETER INTACT; SKIN WNL. COBAN AND GAUZE APPLIED
--- NOTE | 2018-06-09 17:05 | NUR ---
DISCHARGE NOTE PT DISCHARGE VIA W/C TO HOME WITH [facility] AND IN NO ACUTE DISTRESS; IV DISCONTINUED INTACT. PT VERBALIZED UNDERSTANDING OF MAKING FOLLOW UP APPOINTMENTS AND TAKING MEDICATIONS DIRECTED; VERBAL AND WRITTEN DISCHARGE INSTRUCTIONS PROVIDED.
== END 2018-06-09 17:19 | disposition home health service (06) ==
LOC: ER 11:54 → EOR 11:55 → SURS 11:55 → EOR 11:55 → MEDS 06-05 17:13 → ER 06-05 17:13 → MEDS 06-05 19:02
PROVIDERS: Emergency Medicine; Family Medicine; Nurse Practitioner Acute Care; Physician Assistant; ADMIT Emergency Medicine
DX: R29.6 Repeated falls (principal); R53.1 Weakness; F10.20 Alcohol dependence, uncomplicated; D50.9 Iron deficiency anemia, unspecified; J44.9 Chronic obstructive pulmonary disease, unspecified; I10 Essential (primary) hypertension; D22.9 Melanocytic nevi, unspecified; F33.2 Major depressive disorder, recurrent severe without psychotic features; Z86.711 Personal history of pulmonary embolism; Z86.718 Personal history of other venous thrombosis and embolism; Z79.01 Long term (current) use of anticoagulants; Z79.899 Other long term (current) drug therapy
CPT/HCPCS: 36415; 70450; 71045; 71101; 80048; 80053; 82272; 82550; 82607; 82746; 84134; 84443; 85014; 85018; 85025; 90471; 90714; 93005; 93010; 96365; 96366; 96375; 97110; 97116; 97162; 97167; 97530; 97535; 99285-25; G0378; G0480; J1885; J3411; J3475; J7042; Q3014

== ENCOUNTER 2018-06-26 12:47 | Observation (INO) | payer MEDICARE ==
[~2018-06-26] VITALS: Ht 182.9 cm; Wt 69.1 kg
[2018-06-26 15:14] LABS: BASOPHILS ABSOLUTE AUTO 0.03 K/mm3 (0.00-0.23); BASOPHILS PERCENT AUTO 1 % (0-2); EOSINOPHILS ABSOLUTE AUTO 0.21 K/mm3 (0.00-0.68); EOSINOPHILS PERCENT AUTO 5 % (0-6); Hematocrit 32.8 % (37.0-53.0); IMMATURE GRAN ABSOLUTE AUTO 0.01 K/mm3 (0.00-0.10); IMMATURE GRAN PERCENT AUTO 0 % (0-1); LYMPHOCYTES ABSOLUTE AUTO 1.39 K/mm3 (0.84-5.20); LYMPHOCYTES PERCENT AUTO 32 % (21-46); MONOCYTES ABSOLUTE AUTO 0.64 K/mm3 (0.16-1.47); MONOCYTES PERCENT AUTO 15 % (4-13); Mean Corpuscular HGB Conc 30.5 g/dL (31.5-36.5); Mean Corpuscular Volume 88 fL (80-100); Mean Platelet Volume 9.3 fL (9.1-12.4); NEUTROPHILS ABSOLUTE AUTO 2.11 K/mm3 (1.96-9.15); NEUTROPHILS PERCENT AUTO 48 % (41-73); Platelet Count 183 K/mm3 (150-400); RDW Coefficient Variation 18.5 % (11.7-14.2); Red Blood Cell Count 3.71 M/mm3 (4.30-5.90); White Blood Cell Count 4.39 K/mm3 (4.00-11.30)
[2018-06-26 15:47] LABS: Acetaminophen, Random <2.0 ug/mL (10.0-30.0); Alanine Aminotransfer (ALT/SGP 79 U/L (12-78); Albumin, Blood 3.2 g/dL (3.4-5.0); Alk Phos 127 U/L (50-136); Anion Gap 8 mmol/L (6-16); Aspartate Aminotrans (AST/SGOT 94 U/L (12-37); Bilirubin, Total 0.5 mg/dL (0.1-1.0); Blood Urea Nitrogen 10 mg/dL (8-24); Bun/Creatinine Ratio 12.5 (12.0-20.0); CO2, Blood 28 mmol/L (21-32); Calcium, Blood 8.2 mg/dL (8.5-10.1); Chloride, Blood 110 mmol/L (98-108); Ethanol (Alcohol), Blood, Med 298 mg/dL; Globulin, Blood 3.3 g/dL (2.2-4.0); Glomerular Filtration Rate >60 (60-); Glucose, Blood 118 mg/dL (70-99); Potassium, Blood 3.7 mmol/L (3.5-5.5); Salicylate 5.4 mg/dL (2.8-20.0); Sodium, Blood 146 mmol/L (136-145); Total Protein, Blood 6.5 g/dL (6.4-8.2); Troponin I <0.015 ng/mL (0.000-0.040)
[2018-06-26 15:51] LABS: Thyroid Stimulating Hormone 0.753 uIU/mL (0.360-4.800)
[2018-06-26 16:35] LABS: Source, Urine Clean Catch
[2018-06-26 16:39] LABS: Appearance, Urine Clear (Clear); Bilirubin, Urine Neg (Neg); Blood, Urine Neg (Neg); Color, Urine Yellow (P-Yellow); Glucose Qualitative, Urine Neg (Neg); Ketones, Urine Neg (Neg); Leukocyte Esterase, Urine Neg (Neg); Nitrite, Urine Neg (Neg); Protein, Urine Neg (Neg); Specific Gravity, Urine 1.015 (1.003-1.022); Urobilinogen, Urine NORM (Normal); pH, Urine 6.5 (5.0-8.0)
[2018-06-26] MEDS ORDERED: **INCOMPLETE MED REC ×2 (17:03→20:22)
[2018-06-26 17:34] LABS: U Amphetamine Screen Not Detected; U Barbituate Screen Not Detected; U Benzodiazapine Screen Not Detected; U Buprenorphine Screen Not Detected; U Cannabinoids Screen Not Detected; U Cocaine Screen Not Detected; U Methadone Screen Not Detected; U Methamphetamine Screen Not Detected; U Opiates Screen Not Detected; U Oxycodone Screen Not Detected; U Phencyclidine Screen Not Detected; U Propoxyphene Screen Not Detected
[2018-06-26] MEDS ORDERED: Cymbalta20 MG PO (20:27)
[2018-06-26] MEDS ORDERED: LISI20 PO (20:28)
[2018-06-26] MEDS ORDERED: PANT40 PO (20:28)
[2018-06-26] MEDS ORDERED: Ferrous Sulfat325 M2 PO (20:28)
--- NOTE | 2018-06-26 21:24 | NUR ---
REPORT RECIEVED FROM NACHO DAS RN AND AWAITING PT T/F TO ROOM 345. PT BEING ADMITTED FOR FALLS W/FX'D RIBS, HAS HX OF ETOH ABUSE AND WILL HAVE A SITTER PRESENT FOR SI.
--- NOTE | 2018-06-26 23:28 | NUR ---
PT T/F'D TO ROOM 345 AT 2140 FOR RECURRENT FALLS AT HOME W/BROKEN RIBS, ETOH ABUSE, DEPRESSION AND SI. HE HAS SITTER PRESENT IN ROOM AND CHECKLIST WAS COMPLETED. PT HAS CHRONIC PAIN ISSUES BUT REFUSES NARCOTICS D/T BECOMING "ADDICTED IN PAST FOLLOWING BACK SURGERIES". HE TAKES IBUPROFEN PRN AT HOME. HE ALSO STATED THAT HE NEVER REFILLED HIS LISINOPRIL RX IN AFTER RUNNING OUT D/T LACKING DESIRE TO TAKE MEDS FOLLOWING 'S STROKE AND PLACEMENT IN A FACILITY LEAVING HIM LIVING ALONE. SINCE THIS EVENT, HE ADMITS THAT HIS SELF CARE, ABILITIES AND HEALTH HAS WORSENED. HE ONLY EATS "TV DINNERS AND LACKS INTEREST IN FOOD W/WEIGHT LOSS APPARENT". HE'S BECOME DECONDITIONED AND RELIES ON FWW BUT "STRUGGLES W/THAT TOO". HE STATED THAT HIS DRINKING FLUCTUATES DEPENDING ON HIS MOOD AND HOW SAD/PAINFUL HE IS IN A DAY. HE WISHED TO BE DNR. WILL NOTIFY . JW 8 W/LIBRIUM 25MG PO PROVIDED. HE APPEARS TREMULOUS, ANXIOUS, SLIGHTLY DIAPHORETIC, AND HAS MILD NAUSEA. WILL MONITOR CLOSELY FOR CHANGES/WORSENING.
--- NOTE | 2018-06-26 23:51 | NUR ---
PT JUST VOMITED 300 MLS UNDIGESTED RED TINGED EMESIS. HE WAS DRINKING PEPSI AND ATE CHICKEN IN ER BUT STATED THAT WAS THE FIRST THING HE'D EATEN IN 24 HOURS. IT IS UNCLEAR WHETHER THE RED COLOR WAS BLOOD BUT NO CLOTS WERE OBSERVED. LIBRIUM WAS RECENTLY RECIEVED BUT IT IS LIKELY HE THREW IT UP. WILL NOTIFY MD OF NEED FOR ANTINAUSEA MEDS AND POSSIBLY ADDTIONAL CIWA MEDS NOW THAT SCORE IS UP TO 12. MOTORCYCLE DELIVERER AWARE.
--- NOTE | 2018-06-27 00:17 | NUR ---
ALERTED TO N/V OF RED TINGED UNDIGESTED EMESIS, WORSENING CIWA NOW 12 AND UNCONTROLLED RIB PAIN. NEW ORDERS RECIEVED FOR: ATIVAN 0.5-2MG IV Q1H PRN, ZOFRAN 4MG IV Q6H PRN AND TORADOL 15MG IV Q8H PRN. WILL MEDICATE APPROPRIATE DEPENDING ON PT NEEDS.
--- NOTE | 2018-06-27 00:32 | NUR ---
PT ADMITTED TO FEELING RELIEF AFTER EMESIS AND THAT WAVE OF NAUSEA/INDIGESTION HAD PASSED. HE IS NOW SLEEPING W/O S/S DISTRESS BUT WILL ASSESS FUTURE NEED FOR NEWLY ORDERED PRN MEDS. HE DOESN'T SEEM TO NEED ANY AT THIS TIME THOUGH AND AWOKE BRIEFLY TO DENY THEM.
[2018-06-27] MEDS ORDERED: IBUP400 PO (00:35)
[2018-06-27] MEDS ORDERED: ALKA-SELTZER G1 EACH PO (00:37)
--- NOTE | 2018-06-27 04:09 | NUR ---
PT CONT'S ASLEEP W/O S/S ETOH W/D OR NEED FOR PRN MEDS. WILL ASSESS FURTHER WHEN AWAKE. SITTER PRESENT IN ROOM AND STATES PT HAS AWOKEN MULTIPLE TIMES BRIEFLY D/T NOISE IN HALLS BUT HAS DENIED COMPLAINTS/NEEDS.
--- NOTE | 2018-06-27 05:09 | NUR ---
PT AWOKE AND CIWA WAS 2 ONLY D/T MILD ANXIETY AND SLIGHT TREMOR THAT COULD BE FELF BUT NOT OBSERVED. PT DENIED NEEDING PAIN MEDS, NAUSEA MEDS AND FELT HE WASN'T HAVING ANY SYMPTOMS OF ETOH W/D. HE ADMITS THAT EMESIS WAS LIKELY D/T ACID REFLUX AND HAVING HAD DINNER RECENTLY IN ER AFTER NOT EATING MUCH LATELY. WILL CONTINUE TO MONITOR FOR SI, MED NEEDS AND W/D SYMPTOMS.
--- NOTE | 2018-06-27 05:12 | NUR ---
SUMMARY: PT NEW THIS SHIFT AND ADMITTED FOR FALLS W/FX'D RIBS, DECONDITIONING, ETOH ABUSE AND SI. PT HAS EXPRESSED NO CURRENT PLAN OR SI SINCE ARRIVAL TO FLOOR AND SEEMS HOPEFUL THAT MENTAL HEALTH WILL IMPROVE IF HE CAN BE REUNITED W/HIS IN AN ASSISTED LIVING FACILITY IN THE FUTURE, SS CX'ING AND ATTEMPTING TO MAKE ARRANGEMENTS. [employer] CX PAPERWORK FAXED TO ER AND IS PENDING, TELEPSYCH WAS A (+) SI ASSESSMENT IN ER SO SITTER IS PRESENT IN ROOM AT ALL TIMES. HE ADMITS TO INCREASED DEPRESSION AND ISOLATION SINCE 'S CVA AND ADMIT TO FACILITY. HE'S SINCE BEEN LESS ABLE TO CARE FOR SELF W/HEALTH AND PHYSICAL ABILITIES DETERIORATING AND ADL'S SUFFERING. PT DRINKS ETOH WEEKLY BUT AMOUNT IS MOOD DEPENDENT. HE RANGES FROM BEING CALM W/O S/S W/D TO ANXIOUS, TREMULOUS, DIAPHORETIC AND HAD EPISODE OF NAUSEA W/EMESIS THIS SHIFT. EMESIS WAS RED TINGED BUT HAD NO OBVIOUS BLOOD OR CLOTS OBSERVED. HE HAS REFLUX AT BASELINE AND STATED RELIEF AFTER EMESIS W/O FURTHER EPISODES SINCE. HE FELT N/V WAS D/T EATING IN ER AFTER NOT HAVING EATEN WELL FOR MONTHS PAIRED W/NERVES AND REFLUX. PT SLEPT MAJORITY OF SHIFT AND HAS DENIED NEEDING PAIN, NAUSEA OR ANXIETY MEDS SINCE SINCE ARRIVAL TO FLOOR AND GETTING ADDITIONAL PRN MEDS RX'D. BANANA BAG WAS COMPLETED AND HE'S NOW SL. HE HAD LIBRIUM 25 MG PO WHEN CIWA WAS 6 BUT LIKELY VOMITED MOST OF IT UP. HE'S WEAK REQUIRING 2 PERSON ASSIST OOB AND HAD LARGE BM UPON T/F TO ROOM. NO EVIDENCE BLOOD AND HAS USED URINAL IN BED SINCE. NO ACUTE CHANGES, VSS/AFEBRILE. HYPERTENSIVE NOTED BUT HAS ELEVATED BP AT BASELINE AND HASN'T TAKEN HOME LISINOPRIL SINCE . PT WISHES TO BE DNR AND WILL OBTAIN ORDER OR DISCUSS W/DAY STAFF. WILL CONT TO MONITOR AND REPORT TO DAY RN.
[2018-06-27 05:41] LABS: Anion Gap 6 mmol/L (6-16); Blood Urea Nitrogen 12 mg/dL (8-24); Bun/Creatinine Ratio 16.1 (12.0-20.0); CO2, Blood 27 mmol/L (21-32); Calcium, Blood 7.8 mg/dL (8.5-10.1); Chloride, Blood 104 mmol/L (98-108); Creatinine, Blood 0.75 mg/dL (0.60-1.20); Glomerular Filtration Rate >60 (60-); Glucose, Blood 118 mg/dL (70-99); Magnesium, Blood 2.1 mg/dL (1.6-2.4); Phosphorus, Blood 3.4 mg/dL (2.5-4.9); Potassium, Blood 4.1 mmol/L (3.5-5.5); Sodium, Blood 137 mmol/L (136-145)
--- NOTE | 2018-06-27 18:12 | NUR ---
SHIFT SUMMARY PT WITH SITTER TIL [address] AMAYA IN AND DCD PRECAUTIONS. PT A/OX3 AND APPROPRIATE. ASSIST TO BSC THIS MORNING AND SPONGE BATH GIVEN PER NUCLEAR RADIOLOGIST. MEDICATED WITH TRAMADOL TWICE FOR PAIN TO R SIDE/BACK WITH EFFECTIVENESS. PT HAS CALLED SEVERAL TIMES TODAY TO CHAT. INCENTIVE SPIROMETER GIVEN AND INSTRUCTED ON. ALSO GAVE INSTRUCTIONS ON USE OF SPLINTING WITH A PILLOW. PLEASANT WITH NO COMPLAINTS.
--- NOTE | 2018-06-27 23:54 | NUR ---
PATIENT REPORTS N/V AFTER DRINKING COFFEE. ZOFRAN GIVEN PER EMAR. CALL LIGHT IN REACH. WILL CONTINUE TO MONITOR.
--- NOTE | 2018-06-28 03:29 | NUR ---
SHIFT SUMMARY PATIENT HAD NO ACUTE CHANGES OBSERVED THIS SHIFT. AXOX 3 AND TWO PERSON ASSIST TO BSC. CIWA 4-5 WITH NAGY AND TREMOR. PIV REMAINS INTACT. IV FOLIC ACID INFUSED. USES URINAL AT BEDSIDE. REPORTED N/V X TWO AND RECEIVED ZOFRAN PER EMAR. VSS/AFEBRILE. DENIES SOB. LIDO PATCHES TO START IN AM FOR RS RIBS. COOPERATIVE WITH CARE. CALL LIGHT IN REACH. WILL CONTINUE TO MONITOR UNTIL DAY SHIFT NURSE ASSUMES CARE.
--- NOTE | 2018-06-28 17:45 | NUR ---
REPORT RECEIVED FROM LIZETH HAWKINS; PT TO ROOM VIA W/C; ABLE TO TRANSFER TO BED WITH 1-2 PERSON ASSIST. DENIES ANY PAIN OR DISTRESS; 1+ TREMORS TO BILATERAL UPPER EXT. CONFUSED BUT OX3.
--- NOTE | 2018-06-28 19:07 | NUR ---
GAVE REPORT PRIOR TO PT TRANSPORTING. PT HAS BEEN GOOD THROUGHOUT SHIFT. PT APPEARED TO BE AOX4, BUT DIMINSTRATED VISUAL HALLUCINATIONS THE DAY PROGRESSED. PT HAS STAYED IN BED ALL DAY AND CALLS APPROPRIATLEY. NO DISTRESS THROUGHOUT THIS WRITERS CARE.
[2018-06-29 05:40] LABS: Alanine Aminotransfer (ALT/SGP 60 U/L (12-78); Albumin, Blood 3.1 g/dL (3.4-5.0); Albumin/Globulin Ratio 0.9 (0.8-1.8); Alk Phos 133 U/L (50-136); Anion Gap 8 mmol/L (6-16); Aspartate Aminotrans (AST/SGOT 65 U/L (12-37); Bilirubin, Total 0.6 mg/dL (0.1-1.0); Blood Urea Nitrogen 5 mg/dL (8-24); Bun/Creatinine Ratio 6.3 (12.0-20.0); CO2, Blood 27 mmol/L (21-32); Calcium, Blood 9.8 mg/dL (8.5-10.1); Chloride, Blood 104 mmol/L (98-108); Creatinine, Blood 0.79 mg/dL (0.60-1.20); Globulin, Blood 3.3 g/dL (2.2-4.0); Glomerular Filtration Rate >60 (60-); Glucose, Blood 104 mg/dL (70-99); Sodium, Blood 139 mmol/L (136-145); Total Protein, Blood 6.4 g/dL (6.4-8.2)
--- NOTE | 2018-06-29 07:57 | NUR ---
call light in reach, room air, saline locked, woobbly on feet, sba, walking to toilet on own, tremors only noted symptom for ciwa, walking rounds completed with day staff
--- NOTE | 2018-06-29 18:01 | NUR ---
ALERT AND ORIENTED. USES I.S. STILL HAS PAIN RT LATERAL RIBS POST FALL AT HOME. COOPERATIVE. USES URINAL IN BED. HAS REFUSED TO GET UP TODAY. C/O N/V X ONE AND MEDICATED WITH GOOD RESULTS. BED IN LOW POSITION. CALL LIGHT WITHIN REACH. WILL CONTINUE TO MONITOR.
--- NOTE | 2018-06-30 06:09 | NUR ---
SHIFT SUMMARY PT SLEPT SOUNDLY T/O SHIFT, WILL WAKEN W/NAME SAID & STATES "I'M VERY TIRED." AOX4. VSS. DENIES SOB OR N/V. REPORTED 8/10 PAIN IN R. SIDE/RIBS THIS AM & WAS MEDICATED W/TORODOL PER ORDERS. PT STATES THIS AM "I DON'T WANT MY BREAKFAST TRAY THIS MORNING, BECAUSE AFTER I EAT THEN I GET HEARTBURN & FEEL NAUSEOUS & THROW UP." PT HAS HAD NO EMESIS THIS SHIFT & HAS TOLERATED WATER WELL. CIWA SCORE IS 0-3, FOR MILD HEADACHE & TREMORS W/TOUCH. CALL LIGHT IS IN REACH & I WILL CONT. TO MONITOR PT UNTIL DAY SHIFT RN ASSUMES CARE.
--- NOTE | 2018-06-30 17:50 | NUR ---
SUMMARY PT EATING DINNER, IN BED, HAS BEEN MED FOR GAS AND NAUSEA PER EMAR, PT HAS BEEN PLEASANT AND COOPERATIVE WITH CARE, VSS, NO ACUTE CHANGES, WILL CONT TO MONITOR
--- NOTE | 2018-07-01 06:33 | NUR ---
SHIFT SUMMARY NO ACUTE CHANGES THIS SHIFT. PT SLEPT WELL T/O NIGHT. DENIES SOB OR N/V. REPORTED PAIN IN R. SIDE/RIBS & WAS MEDICATED 1X W/ULTRAM PER ORDERS. PT IS PLEASANT & COOPERATIVE W/CARE. CALL LIGHT IN REACH & I WCTM PT UNTIL DAY SHIFT RN ASSUMES CARE.
--- NOTE | 2018-07-01 17:08 | NUR ---
SUMMARY PT AWAKE IN BED WATCHING TV, PT HAS BEEN PLEASANT AND COOPERATIVE WITH CARE, PT UP TO THE BATHROOM WITH THE WALKER WITH 1P ASSIST, PT USES THE CALL LIGHT APPROPRIATELY, VSS, NO ACUTE CHANGES, WILL CONT TO MONITOR
--- NOTE | 2018-07-02 05:48 | NUR ---
SHIFT SUMMARY NO ACUTE CHANGES. PT SLEPT WELL T/O NIGHT. AOX4. VSS. DENIES SOB OR N/V. REPORTED 9/10 PAIN IN R.SIDE/RIBS, MEDICATED 1X W/ULTRAM PER ORDERS LAST NIGHT & DENIES ANY FURTHER PAIN/DISCOMFORT THIS AM. CALL LIGHT IN REACH & I WILL CONT. TO MONITOR PT.
--- NOTE | 2018-07-02 18:20 | NUR ---
SHIFT SUMMARY CELIA SLEPT FOR MOST OF THE DAY. DECLINED TO GET OOB. DECLINED TO WORK WITH PT. STATES HE FEELS TOO WEAK TO DO SO. DID EXTENSIVE TEACHING ABOUT HOW HE WILL LOSE STRENGTH STAYING IN BED ALL DAY AND PT WILL MAKE HIM STRONGER, BUT HE DECLINED. COMPLAINED OF SOME R RIB PAIN IN THE MORNING BUT AFTER BREAKFAST, BUT STATES IT GOT MUCH BETTER AFTER BREAKFAST AND SAID HE DIDN'T NEED FURTHER PAIN MEDS. HAD TUMS AND SIMETHICONE IN THE MORNING FOR HEARTBURN, BUT DECLINED ANY FOR LUNCH OR DINNER. REPOSITIONS SELF IN BED. WCTM
[2018-07-03 04:51] LABS: Hematocrit 32.1 % (37.0-53.0); Hemoglobin 9.5 g/dL (13.5-17.5); Mean Corpuscular HGB 26.2 pg (26.0-34.0); Mean Corpuscular HGB Conc 29.6 g/dL (31.5-36.5); Mean Corpuscular Volume 89 fL (80-100); Mean Platelet Volume 9.8 fL (9.1-12.4); Platelet Count 156 K/mm3 (150-400); RDW Coefficient Variation 17.6 % (11.7-14.2); RDW Standard Deviation 58.1 fL (35.1-46.3); Red Blood Cell Count 3.62 M/mm3 (4.30-5.90); White Blood Cell Count 3.82 K/mm3 (4.00-11.30)
[2018-07-03 05:12] LABS: Alanine Aminotransfer (ALT/SGP 59 U/L (12-78); Albumin, Blood 3.2 g/dL (3.4-5.0); Albumin/Globulin Ratio 0.9 (0.8-1.8); Alk Phos 112 U/L (50-136); Anion Gap 7 mmol/L (6-16); Aspartate Aminotrans (AST/SGOT 50 U/L (12-37); Bilirubin, Total 0.5 mg/dL (0.1-1.0); Blood Urea Nitrogen 14 mg/dL (8-24); Bun/Creatinine Ratio 15.4 (12.0-20.0); CO2, Blood 27 mmol/L (21-32); Calcium, Blood 8.7 mg/dL (8.5-10.1); Chloride, Blood 105 mmol/L (98-108); Creatinine, Blood 0.91 mg/dL (0.60-1.20); Globulin, Blood 3.5 g/dL (2.2-4.0); Glomerular Filtration Rate >60 (60-); Glucose, Blood 99 mg/dL (70-99); Potassium, Blood 3.8 mmol/L (3.5-5.5); Sodium, Blood 139 mmol/L (136-145); Total Protein, Blood 6.7 g/dL (6.4-8.2)
--- NOTE | 2018-07-03 06:10 | NUR ---
07/03/18 0600 AWAKE AND GIVEN AM MED. C/O CONSTIPATION. STATES BM YESTERDAY WAS ONLY VERY SMALL ONE AND REQUESTING MORE LAXATIVES. INSTRUCTED HIM TO SPEAK WITH AM MD ABOUT SUPPOSITORY OR OTHER STOOL STIMULNT. PT STATES HE WILL TALK WITH HIM. VITALS STABLE.
--- NOTE | 2018-07-03 12:23 | NUR ---
PATIENT GAVE STUDENT NURSE PERMISSION TO CARE FOR HIM ON 07/04/2018.
--- NOTE | 2018-07-03 17:12 | NUR ---
PT. LYING IN BED WATCHING TV AND TALKING ON PHONE. [facility] AND A [employer] COMPLAINT SUPERVISOR CAME TO TALK TO PT. ABOUT MOVING TO [facility] AL[facility] WITH HIS SPOUSE. TOLD THEM HE HAD TO THINK ABOUT IT AND HE WOULD GIVE AN ANSWER TOMORROW. OVERHEARD HIM TALKING TO HIS SPOUSE AND HE TOLD HER THEY WEREN'T SELLING THEIR STUFF AND THEY WOULD BOTH BE GOING HOME. STATES "NOBODY IS GOING TO TELL ME HOW TO LIVE MY LIFE, THEYRE JUST RAILROADING US!" NO NOTEABLE CHANGES IN PT'S CONDITION TODAY.
--- NOTE | 2018-07-04 02:18 | NUR ---
07/03/182099 SLEEPING WELL. WILL HOLD OFF ON PM MEDS FOR NOW.
[2018-07-04 05:19] LABS: Hematocrit 31.1 % (37.0-53.0); Hemoglobin 9.3 g/dL (13.5-17.5); Mean Corpuscular HGB 26.4 pg (26.0-34.0); Mean Corpuscular HGB Conc 29.9 g/dL (31.5-36.5); Mean Corpuscular Volume 88 fL (80-100); Mean Platelet Volume 10.5 fL (9.1-12.4); Platelet Count 159 K/mm3 (150-400); RDW Coefficient Variation 17.8 % (11.7-14.2); RDW Standard Deviation 57.9 fL (35.1-46.3); Red Blood Cell Count 3.52 M/mm3 (4.30-5.90); White Blood Cell Count 3.96 K/mm3 (4.00-11.30)
[2018-07-04 05:58] LABS: Alanine Aminotransfer (ALT/SGP 54 U/L (12-78); Albumin, Blood 3.1 g/dL (3.4-5.0); Albumin/Globulin Ratio 0.9 (0.8-1.8); Alk Phos 115 U/L (50-136); Anion Gap 8 mmol/L (6-16); Aspartate Aminotrans (AST/SGOT 43 U/L (12-37); Bilirubin, Direct 0.1 mg/dL (0.0-0.3); Bilirubin, Indirect 0.4 mg/dL (0.1-0.7); Bilirubin, Total 0.5 mg/dL (0.1-1.0); Blood Urea Nitrogen 14 mg/dL (8-24); Bun/Creatinine Ratio 15.5 (12.0-20.0); CO2, Blood 26 mmol/L (21-32); Calcium, Blood 8.8 mg/dL (8.5-10.1); Chloride, Blood 106 mmol/L (98-108); Globulin, Blood 3.3 g/dL (2.2-4.0); Glomerular Filtration Rate >60 (60-); Glucose, Blood 106 mg/dL (70-99); Potassium, Blood 4.1 mmol/L (3.5-5.5); Sodium, Blood 140 mmol/L (136-145); Total Protein, Blood 6.4 g/dL (6.4-8.2)
--- NOTE | 2018-07-04 06:28 | NUR ---
07/04/18 0630 AWAKENED FOR AM MED. CHEERFUL AND DENIES ANY DISCOMFORT OR PROBLEMS. VITALS STABLE. UNEVENTFUL NIGHT.
[2018-07-04] MEDS ORDERED: LISI20 PO (13:07)
[2018-07-04] MEDS ORDERED: ALBU90OI INH (13:09)
[2018-07-04] MEDS ORDERED: Omeprazole20 M1 PO (13:09)
[2018-07-04] MEDS ORDERED: TIOT18 INH (13:10)
--- NOTE | 2018-07-04 16:03 | NUR ---
PT. DISCHARGED HOME WITH [facility] IDRIS RANKIN.
== END 2018-07-04 16:05 | disposition home health service (06) ==
LOC: ER 12:47 → MEDS 12:48
PROVIDERS: Emergency Medicine; Internal Medicine; ADMIT Internal Medicine
DX: F33.2 Major depressive disorder, recurrent severe without psychotic features (principal); F10.229 Alcohol dependence with intoxication, unspecified; I63.9 Cerebral infarction, unspecified; S22.32XA Fracture of one rib, left side, initial encounter for closed fracture; K59.00 Constipation, unspecified; K21.9 Gastro-esophageal reflux disease without esophagitis; J44.9 Chronic obstructive pulmonary disease, unspecified; I10 Essential (primary) hypertension; D50.9 Iron deficiency anemia, unspecified; R74.0 Nonspecific elevation of levels of transaminase and lactic acid dehydrogenase [LDH]; R62.7 Adult failure to thrive; R29.6 Repeated falls; Z86.711 Personal history of pulmonary embolism; Z79.02 Long term (current) use of antithrombotics/antiplatelets; F17.200 Nicotine dependence, unspecified, uncomplicated; Y90.8 Blood alcohol level of 240 mg/100 ml or more; Z79.899 Other long term (current) drug therapy
CPT/HCPCS: 36415; 70450; 71046; 80048; 80053; 80076; 81003; 83735; 84100; 84443; 84484; 85025; 85027; 93005; 93010; 94640; 94760; 96365; 96366; 96372; 96375; 96376; 97162; 97530; 99285-25; C9113; G0378; G0480; J1650; J1885; J2405; J3475; J7042; Q3014

== ENCOUNTER 2018-07-10 13:29 | Observation (INO) | payer MEDICARE ==
[~2018-07-10] VITALS: Ht 182.9 cm; Wt 71.7 kg
[~2018-07-10 13:29] MED LIST changes: +**INCOMPLETE MED REC; +ALBU90OI INH; +ALKA-SELTZER G1 EACH PO; +Cymbalta20 MG PO; +IBUP400 PO; +LISI20 PO; +Omeprazole20 M1 PO; +PANT40 PO; +TIOT18 INH
[2018-07-10 14:36] LABS: BASOPHILS ABSOLUTE AUTO 0.05 K/mm3 (0.00-0.23); BASOPHILS PERCENT AUTO 0 % (0-2); EOSINOPHILS PERCENT AUTO 0 % (0-6); Hematocrit 33.7 % (37.0-53.0); Hemoglobin 10.1 g/dL (13.5-17.5); IMMATURE GRAN ABSOLUTE AUTO 0.08 K/mm3 (0.00-0.10); IMMATURE GRAN PERCENT AUTO 1 % (0-1); LYMPHOCYTES ABSOLUTE AUTO 0.46 K/mm3 (0.84-5.20); LYMPHOCYTES PERCENT AUTO 4 % (21-46); MONOCYTES PERCENT AUTO 5 % (4-13); Mean Corpuscular HGB 26.3 pg (26.0-34.0); Mean Corpuscular Volume 88 fL (80-100); Mean Platelet Volume 9.5 fL (9.1-12.4); NEUTROPHILS ABSOLUTE AUTO 10.02 K/mm3 (1.96-9.15); NEUTROPHILS PERCENT AUTO 89 % (41-73); Platelet Count 344 K/mm3 (150-400); RDW Coefficient Variation 17.7 % (11.7-14.2); RDW Standard Deviation 57.1 fL (35.1-46.3); Red Blood Cell Count 3.84 M/mm3 (4.30-5.90); White Blood Cell Count 11.21 K/mm3 (4.00-11.30)
[2018-07-10 14:58] LABS: Alanine Aminotransfer (ALT/SGP 75 U/L (12-78); Albumin, Blood 3.7 g/dL (3.4-5.0); Alk Phos 122 U/L (50-136); Anion Gap 12 mmol/L (6-16); Aspartate Aminotrans (AST/SGOT 53 U/L (12-37); Bilirubin, Total 0.7 mg/dL (0.1-1.0); Blood Urea Nitrogen 14 mg/dL (8-24); Bun/Creatinine Ratio 22.5 (12.0-20.0); CO2, Blood 26 mmol/L (21-32); CPK Creatine Kinase 109 U/L (39-308); Calcium, Blood 8.6 mg/dL (8.5-10.1); Chloride, Blood 109 mmol/L (98-108); Creatine Kinase MB 1.6 ng/mL (0.0-3.6); Creatine Kinase MB Index 1.5 (0.0-4.0); Creatinine, Blood 0.62 mg/dL (0.60-1.20); Globulin, Blood 3.8 g/dL (2.2-4.0); Glomerular Filtration Rate >60 (60-); Glucose, Blood 168 mg/dL (70-99); Potassium, Blood 3.5 mmol/L (3.5-5.5); Sodium, Blood 147 mmol/L (136-145); Total Protein, Blood 7.5 g/dL (6.4-8.2); Troponin I 0.034 ng/mL (0.000-0.040)
[2018-07-10] MEDS ORDERED: [UNRECOGNIZED DRUG - CODE] PO (16:38)
[2018-07-10] MEDS ORDERED: [UNRECOGNIZED DRUG - CODE] PO (16:39)
--- NOTE | 2018-07-10 19:32 | NUR ---
SHIFT SUMMARY CELIA ARRIVED ON MEDICAL FLOOR AT 1830. DENIED PAIN EXCEPT A SORE BOTTOM. BOTTOMS IS RED AND SORE LOOKING. REPORT HANDED TO NIGHT RN
[2018-07-10 21:14] LABS: Source, Urine Clean Catch
[2018-07-10 21:26] LABS: Appearance, Urine Clear (Clear); Blood, Urine Neg (Neg); Color, Urine Amber (P-Yellow); Glucose Qualitative, Urine Neg (Neg); Ketones, Urine 1+ (Neg); Leukocyte Esterase, Urine 1+ (Neg); Nitrite, Urine Neg (Neg); Protein, Urine 2+ (Neg); Urobilinogen, Urine 3+ (Normal)
[2018-07-10 21:34] LABS: Bilirubin, Urine 1+ (Neg)
[2018-07-10 21:36] LABS: Squamous Epithelial Cells Few /hpf (Few)
[2018-07-10 21:37] LABS: Bacteria Rare /hpf
[2018-07-11 05:17] LABS: Hematocrit 27.4 % (37.0-53.0); Hemoglobin 8.4 g/dL (13.5-17.5); Mean Corpuscular HGB 26.1 pg (26.0-34.0); Mean Corpuscular HGB Conc 30.7 g/dL (31.5-36.5); Mean Platelet Volume 9.2 fL (9.1-12.4); Platelet Count 260 K/mm3 (150-400); RDW Standard Deviation 56.1 fL (35.1-46.3); Red Blood Cell Count 3.22 M/mm3 (4.30-5.90); White Blood Cell Count 6.57 K/mm3 (4.00-11.30)
[2018-07-11 05:18] LABS: Mean Corpuscular Volume 85 fL (80-100)
[2018-07-11 05:37] LABS: Anion Gap 7 mmol/L (6-16); Blood Urea Nitrogen 11 mg/dL (8-24); Bun/Creatinine Ratio 14.3 (12.0-20.0); CO2, Blood 27 mmol/L (21-32); Calcium, Blood 8.3 mg/dL (8.5-10.1); Chloride, Blood 106 mmol/L (98-108); Creatinine, Blood 0.77 mg/dL (0.60-1.20); Glomerular Filtration Rate >60 (60-); Glucose, Blood 106 mg/dL (70-99); Magnesium, Blood 2.1 mg/dL (1.6-2.4); Phosphorus, Blood 2.5 mg/dL (2.5-4.9); Potassium, Blood 3.2 mmol/L (3.5-5.5); Sodium, Blood 140 mmol/L (136-145)
--- NOTE | 2018-07-11 05:54 | NUR ---
SHIFT SUMMARY PT MEDICATED WITH TRAMADOL AT BEDTIME FOR HEADACHE. HAS SLEPT WELL T/O THE NIGHT. CIWA'S RANGING FROM 0-3 DURING THE NIGHT. PT USING URINAL PER SELF DURING THE NIGHT. WILL CONTINUE TO MONITOR.
--- NOTE | 2018-07-11 18:58 | NUR ---
SHIFT SUMMARY PATIENT HAS HAD NO ACUTE CHANGES. CIWA 0. BARRIER CREAM APPLIED TO BOTTOM. TURNED OF COCCYX. MEDICATED PER EMAR. ABLE TO MAKE HIS NEEDS KNOWN. CALLING HIS ON THE PHONE FREQUENTLY.
--- NOTE | 2018-07-11 22:34 | NUR ---
PT RESTING QUIETLY AT THIS TIME.
--- NOTE | 2018-07-12 00:57 | NUR ---
CIWA 8 FOR NAUSEA, AGITATION AND HEADACHE. PT APPEARED MORE AGITATED THAN EARLIER AND COMPLAINING OF NAUSEA. 1 MG IV ATIVAN GIVEN. WILL MONITOR RESULTS.
--- NOTE | 2018-07-12 01:11 | NUR ---
PT RESTING QUIETLY, SNORING. NO AGITATION NOTED. CALL LT IN REACH.
--- NOTE | 2018-07-12 02:19 | NUR ---
PT STATES HE'S DOING GOOD.
--- NOTE | 2018-07-12 04:12 | NUR ---
SHIFT SUMMARY: CIWA 0 AT BEGINNING OF SHIFT. LATER PT APPEARED AGITATED, COMPLAINING OF NAUSEA, HEADACHE, REASSESSED CIWA WHICH WAS 8. 1 MG ATIVAN IV GIVEN WHICH HAD GREAT THERAPEUTIC RESULTS. PT LESS AGITATED AND RESTED WELL AFTER DOSE. WILL CONTINUE TO MONITOR AND PROVIDE CARE UNTIL SHIFT REPORT.
--- NOTE | 2018-07-12 12:08 | NUR ---
PT DNR- PT HAS DNR BAND IN PLACE. MADE IT CLEAR TO ALL STAFF THIS IS HIS WISH, HOWEVER HAS A FULL CODE ORDER; SPOKE TO DR MÉNDEZ SHE WILL CHANGE CODE STATUS SHORTLY.
--- NOTE | 2018-07-12 16:01 | NUR ---
PT C/O 12/[address] MÉNDEZ, PER PT STATEMENT HE "GOES CRAZY" IF HE TAKES TYLENOL. PT HAS HAD C/O STOMACH ACHE OFF AND ON SO IBUPROFEN MAY NOT BE THE BEST CHOICE. DR WILL REVIEW MEDICATIONS INSTRUCTED STAFF TO PROVIDE PT WITH COFFEE TO SEE IF IT HELPS HIS HEADACHE.
--- NOTE | 2018-07-12 19:38 | NUR ---
SHIFT SUMMARY- PT HAS HAD ON AND OFF NAUSEA T/O THE DAY, SIMETHICONE AND ZOFRAN SEEMED TO HELP WITH THIS. PT C/O 12/22 NAGY GAVE A CUP OF COFFEE, HEADACHE WENT AWAY COMPLETELY BUT NAUSEA CAME BACK. PT STATED HE IS "CASIE TO STICK WITH PEPSI" FROM NOW ON. PT ALERT AND ORIENTED X3. NO C/O PAIN OTHER THAN THE NAGY. CIWAS ALL 4 OR LESS.
[2018-07-13 05:57] LABS: Albumin, Blood 2.9 g/dL (3.4-5.0); Anion Gap 8 mmol/L (6-16); Blood Urea Nitrogen 7 mg/dL (8-24); Bun/Creatinine Ratio 8.1 (12.0-20.0); CO2, Blood 27 mmol/L (21-32); Calcium, Blood 8.7 mg/dL (8.5-10.1); Chloride, Blood 104 mmol/L (98-108); Creatinine, Blood 0.86 mg/dL (0.60-1.20); Glomerular Filtration Rate >60 (60-); Glucose, Blood 111 mg/dL (70-99); Phosphorus, Blood 4.1 mg/dL (2.5-4.9); Potassium, Blood 3.8 mmol/L (3.5-5.5); Sodium, Blood 139 mmol/L (136-145)
--- NOTE | 2018-07-13 06:23 | NUR ---
07/13/18 0615 WATCHING TV AND HASN'T SLEPT MUCH "ONLY ABOUT 2 HOURS", HE STATES. VITALS STABLE. OCC "RIB" PAIN WITH COUGH. SEE MAR FOR MEDS GIVEN.
--- NOTE | 2018-07-13 19:40 | NUR ---
SHIFT ASSESSMENT- PT HAD A FULL SHOWER TODAY WITH HAIR WASH. HE BECAME VERY TIRED AFTER THE SHOWER AND PAINFUL, TRAMADOL GIVEN FOR PAIN. GAVE SIMETHICONE AND OMEPRAZOLE AT DINNER TIME AND PT ATE WELL NO C/O NAUSEA OR ABD PAIN AT THE TIME OF BEDSIDE REPORT WITH NIGHT RN [place]. PT ALERT AND ORIENTED USES THE URINAL INDEPENDENTLY IN BED AND CALLS APPROPRIATELY. CALL LIGHT IN REACH AT TIME OF REPORT.
--- NOTE | 2018-07-14 06:43 | NUR ---
Rn summary: Patient is alert and appropriate. Pt with diminished breath sounds, Pt has painful right ribs and rt knee. Pt uses the urinal appropriately. Pt with no ETOH withdrawl symptoms. Pt has rested well most of shift. Awakened this am for vital signs, having significant rt rib pain, medicated with Utram 50 mg. Call light in reach. Awaiting placement where he and his can be together.
--- NOTE | 2018-07-14 19:46 | NUR ---
PT REFUSES PT TODAY. PT STATES THEY WILL TRY ONE MORE TIME BEFORE DISCONTINUING. PT INFORMED OF OPTIONS. C/O PAIN AT RIBS RIGHT SIDE MEDICATED PER EMAR. PT C/O R KNEE GIVING OUT WHENEVER AMBULATING THUS PT REFUSAL. PT ENCOURAGED TO CHANGES POSITIONS...NEEDS MORE ENCOURAGEMENT. CALL LIGHT IN REACH.
--- NOTE | 2018-07-14 22:06 | NUR ---
2115 Report received from Ira. Pt transferred from room 353 to 324 via wheelchair with all personal belongings. Pt denies pain or nausea.
--- NOTE | 2018-07-15 06:00 | NUR ---
77 Y/O MALE RESTED COMFORTABLY ALL EVENING. PT C/O RIGHT LEG PAIN AND WAS GIVEN TRAMADOL 50MG WITH RELIEF FELT. PT HAPPY AND COOPERATIVE. PT DENIES NAUSEA. PTS BED IN LOW POSITION WITH CALL LIGHT AT SIDE.
--- NOTE | 2018-07-15 09:00 | NUR ---
PT PLEASANT COOOP A/O. DENIES PAIN AT THIS ROSE. STATES STILL QUITE WEAK. WANTS TO GO HOME TO BE WITH . CONSIDERING ASST LIVING. H/R REG, NO MURMER NOTED. NO TELE. LUNGS CLEAR, RESP EASY, UNLABORED. ON R/A. BT X4 LAST BM 2 DAYS. GIVING DOCUSATE AND MIRALAX. VOIDS PER URINAL. 1 ASST WITH GAIT BELT AND FWW. BED IN LOW POSITION, CALL LITE IN REACH, CALLS APPROP
--- NOTE | 2018-07-15 17:32 | NUR ---
PT PLEASANT TODAY. WAS BROUGHT TO ER BASICLY BECAUSE WAS WEAK, COLD AND WITHOUT POWER. STATES PAIN IN RIBS FROM COUGH HE HAD. HAS CONSTANT LOW PAIN IN BACK FROM [employer] WORK T/O LIFE. IS CHRONIC. OVERALL STATES IS DOING OKAY. WANTS TO GO TO ASST LIVING TO BE WITH . NO OTHER CONCERNS AT THIS TIME. BED IN LOW POSITION, CALL LITE IN REACH, CALLLS APPROP
--- NOTE | 2018-07-16 03:19 | NUR ---
77 Y/O MALE RESTED COMFORTABLY ALL EVENING WITH NO C/O PAIN OR NAUSEA. PT HAPPY AND COOPERATIVE. PT ENCOURAGED TO PARTICIPATE PT/OT THERAPY TODAY HE HAD BEEN REFUSING THIS SERVICE WITH PATIENT AGREEING TO GIVE IT A TRY AGAIN DUE TO BENEFITS OF INCREASING STRENGTH. PTS BED IN LOW POSITION AND CALL LIGHT AT SIDE.
--- NOTE | 2018-07-16 13:08 | NUR ---
THERAPY GOT THE PATIENT UP INTO THE CHAIR, SOON SHE LEFT HE CALLED ME TO HELP HIM GET BACK INTO BED, I SUGGESTED IT IS GOOD FOR HIM TO SIT UP TO EAT BUT HE DID NOT WANT TO. I OFFERED TO TAKE HIM ON A WALK LATER AFTER LUNCH, HE SAID MAYBE.
--- NOTE | 2018-07-16 18:16 | NUR ---
SHIFT SUMMARY PT ADMITTED FOR GENERALIZED WEAKNESS. HE IS A DNR. 1 ASSIST W/FWW. HE UTILIZES A URINAL WHILE IN BED. HE HAS A HX OF COPD AND FALLS. HE HAS SIGNIFICANT RT. RIB PAIN CONTROLLED WITH LIDOCAINE PATCH AND TRAMADOL. HE IS ON A 2 GRAM LOW SODIUM DIET. HE HAS BEEN COOPERATIVE WITH CARE TODAY. HE IS A&O X4. 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 HE HAS BEEN TRENDING LOW BLOOD PRESSURES.
--- NOTE | 2018-07-17 04:49 | NUR ---
SHIFT SUMMARY PT CONTINUES TO HAVE DISCOMFORT WHEN HE COUGHS. PT IS USING A PILLOW TO SPLINT CHEST WHILE COUGHING. PT DISCOMFORT TX PER EMAR WITH PT ABLE TO FALL ASLEEP. PT HAS SLEPT FOR MOST OF SHIFT. CURRENTLY PT IS SLEEPING AND BREATHING EASY. CALL LIGHT IN REACH.
--- NOTE | 2018-07-17 19:36 | NUR ---
SHIFT SUMMARY PATIENT A&O X4. DENIES ANY SOB OR NAUSEA THIS SHIFT. DENIES NEED FOR ANY PAIN MEDICATION STATING HIS PAIN REMAINS AT A TOLERABLE LEVEL. PATIENT RESTED THROUGHOUT THE DAY. RN MEDICATED PER Jul. NO ACUTE CHANGES THIS SHIFT. BED IN LOWEST POSITION, CALL LIGHT WITHIN REACH.
--- NOTE | 2018-07-18 05:57 | NUR ---
SHIFT SUMMARY: NO ACUTE CHANGES TO REPORT THIS SHIFT. PT IS A&O, CALL LIGHT APPROP AND ABLE TO MAKE NEEDS KNOWN. PLEASANT & COOPERATIVE. TREATED FOR PAIN 2X c PO TRAMADOL FOR CHRONIC R KNEE PAIN. ON ROOM AIR; LS DIM. 1 PER ASSIST c FWW. BREAKDOWN IN [place] AREA; BARRIER CREAM APPLIED. PT IS AWAITING PLACEMENT TO A [facility], HE REPORTS FEELING HAPPY & EXCITED "THEY FOUND A PLACE TO PUT ME AND MY " PER PT. WILL CONT TO MONITOR AND PROVIDE CARE UNTIL PRESUMED BY ONCOMING RN.
--- NOTE | 2018-07-18 10:35 | NUR ---
Patient gave permission on 07.17.18 for student to care for him on 07.18.18
[2018-07-18 11:03] LABS: PCO2 Arterial 36.7 mmHg (35-45); PO2 Arterial 76.9 mmHg (80-100); pH Blood Arterial 7.47 (7.35-7.45)
--- NOTE | 2018-07-18 15:43 | NUR ---
SHIFT SUMMARY- PT AXO X4. PT C/O R SIDE PAIN THIS AM. PT REFUSED PAIN MEDS THIS AM. PT C/O PAIN IN HIS STERNUM AREA THIS AFTERNOON. MEDS GIVEN PER EMAR. PT DENIES N/V. PT REPORTS MILD SOB IS HIS BASELINE. 97% ON RA. 1 ASSIST WITH FWW. NO OTHER SIGNIFICANT CHANGES THIS SHIFT.
--- NOTE | 2018-07-19 06:42 | NUR ---
SHIFT SUMMARY: NO ACUTE CHANGES TONIGHT TO REPORT. PT IS A&O. TREATED FOR PAIN 2X c PO TRAMADOL. LS DIMINISHED T/O. PT IS AWAITING PLACEMENT TO [facility]. WILL CONT TO MONITOR AND PROVIDE CARE UNTIL PRESUMED BY ONCOMING RN.
--- NOTE | 2018-07-19 22:03 | NUR ---
Assumed care of pt after having recieved report from offgoing nurse.
--- NOTE | 2018-07-20 07:39 | NUR ---
shift summary-Pt did well overnight sleeping through the night. VSS. Tylenol given at hs for right rib pain with good relief. Pt awaiting placement at [facility].
--- NOTE | 2018-07-21 04:48 | NUR ---
SHIFT SUMMARY A/O, ABLE TO MAKE NEEDS KNOWN. COOPERATIVE WITH CARE. ANSWERS QUESTIONS APPROPRIATELY. NO C/O PAIN. APPEARED TO REST MUCH OF SHIFT. NO ACUTE CHANGES OVERNIGHT. VSS/AFEBRILE. WCTM. BED IN LOWES POSITION. CALL LIGHT IN REACH. REPORT TO ONCOMING RN.
--- NOTE | 2018-07-21 17:10 | NUR ---
SHIFT SUMMARY NO CHANGES IN ASSESSMENT AT THIS TIME. PT IND IN ROOM. PT AWAITING PLACEMENT IN [facility]. VSS. PT DENIES NEEDS AT THIS TIME. WILL CONTINUE TO MONITOR UNTIL TURNOVER IS COMPLETE. PT DENIED PAIN THIS SHIFT.
--- NOTE | 2018-07-22 04:39 | NUR ---
SHIFT SUMMARY A/O, ABLE TO MAKE NEEDS KNOWN. COOPERATIVE WITH CARE. ANSWERS QUESTIONS APPROPRIATELY. NO C/O PAIN/DISCOMFORT. APPEARED TO REST MUCH OF SHIFT. VSS/AFEBRILE. NO ACUTE CHANGES OVERNIGHT. BED IN LOWEST POSITION. WCTM. CALL LIGHT AND BELONGINGS WITHIN REACH. REPORT TO ONCOMING RN.
--- NOTE | 2018-07-22 16:54 | NUR ---
SHIFT SUMMARY PT HAD STOMACH CRAMPS THIS MORNING AND EARLY AFTERNOON. PT WAS GIVEN BOWEL PROTICOL & ORDERED OT LACTULOSE. PT STATED HE HAD A SMALL HARD BM & THAT THE CRAMPING IN HIS ABD HAS RESOLVED SOME. PT MEDIATED FOR PAIN ONCE THIS SHIFT. PT STATED THAT HIS BOTTOM HURTS AFTER GOING TO THE BATHROOM. NO OTHER CHANGES IN ASSESSMENT AT THIS TIME. PT REFUSED SHOWER DUE TO STOMACH PAIN. VSS. WILL CONTINUE TO MONITOR UNTIL TURNOVER IS COMPLETE.
--- NOTE | 2018-07-23 04:20 | NUR ---
SHIFT SUMMARY A/O, ABLE TO MAKE NEEDS KNOWN. COOPERATIVE WITH CARE. CALLS AND ANSWERS QUESTIONS APPROPRIATELY. NO ACUTE CHANGES OVERNIGHT. APPEARED TO REST MUCH OF NIGHT. REMAINS INDEPENDENT IN ROOM. VSS. NO C/O PAIN/DISCOMFORT. WCTM. BED IN LOWEST POSITION. CALL LIGHT AND BELONGINGS WITHIN REACH. REPORT TO ONCOMING RN.
--- NOTE | 2018-07-23 17:12 | NUR ---
HE HAS BEEN WAITING AROUND FOR UPDATES ON DISCHARGE TO [facility]. HE EATS WELL AND VOIDS WELL. HE SAID THIS MORNING THAT HE FEELS HE EMPTIED OUT COMPLETELY AFTER YESTERDAYS BOWEL CARE. HE IS ABLE TO WALK IN THE ROOM INDEPENDENTLY, THOUGH SPENDS MOST OF THE TIME IN THE BED. HE RECEIVED TRAMADOL X1 FOR PAIN IN HIS R RIB AREA. HE HAS REFUSED A SHOWER TWICE TODAY.
--- NOTE | 2018-07-24 04:32 | NUR ---
SHIFT SUMMARY: PT IS ALERT AND ORIENTED. PT IS CALM AND COOPERATIVE WITH CARE. PT CALLS APPROPRIATELY. PT IS AMBULATING INDEPENDENTLY IN THE ROOM. PT CURRENTLY AWAITING PLACEMENT. PT DENIES PAIN, NAUSEA, VOMITING, AND SOB. PT SLEPT MUCH OF THE NIGHT WHEN NOT DISTURBED. NO ACUTE CHANGES OR COMPLICATIONS THIS SHIFT. BED IN LOW POSITION, CALL LIGHT WITHIN REACH. WILL REPORT TO DAY NURSE.
--- NOTE | 2018-07-24 18:26 | NUR ---
SUMMARY PT SITTING UP IN BED EATING HIS DINNER, PT HAS BEEN PLEASANT AND COOPERATIVE WITH CARE T/O THE DAY, PT HAS HAD A SHOWER, PT ABLE TO SPEAK WITH HIS ON THE PHONE TODAY, PT WORKING WITH DISCHARGE PLANNING TO BE DISCHARGED MONDAY OR MONDAY HE SAID, VSS, NO ACUTE CHANGES, WILL CONT TO MONITOR
--- NOTE | 2018-07-25 03:47 | NUR ---
SHIFT SUMMARY NO CHANGES THIS SHIFT. PT HAS SLEPT MOST OF THE NIGHT. HE HAS DENIED PAIN, INDPENDENT IN THE ROOM. NO COMPLAINTS. CURRENT PLAN IS FOR [facility] MOD OR MONDAY. ASSESSMENT UNCHANGED, WILL CONTINUE TO MONITOR AND REPORT TO ONCOMING RN.
--- NOTE | 2018-07-25 10:42 | NUR ---
PATIENT WAS OFFERED A SHOWER BUT DECLINED HE TOOK ONE YESTERDAY.
--- NOTE | 2018-07-25 16:54 | NUR ---
SUMMARY PT SITTING UP IN BED WATCHING TV, HAS TALKED WITH HIS SPOUSE ON THE PHONE TODAY, PT ANXIOUS ABOUT DISCHARGE LATER THIS WEEK, PT NAUSEATED THIS EVENING, MED PER EMAR, WILL CONT TO MONITOR
--- NOTE | 2018-07-25 17:47 | NUR ---
PATIENT DID NOT WANT DINNER THIS SHIFT DUE TO THROWING UP EARLIER. RN NOTIFIED.
--- NOTE | 2018-07-26 01:15 | NUR ---
PT HAD SEVERAL EPISODES OF N/V. PT HAS BEEN GIVEN ZOFRAN PER EMAR WITH LITTLE RELIEF. ORDER FOR PHENERGAN WAS RECIEVED FROM PROVIDER. PT ALSO HAS HAD TWO LARGE LOOSE BM'S SO FAR. BOWEL CARE HAS BEEN DC'D PER PROVIDER. NO ORDERS FOR LOOSE STOOL. PROVIDER WANTS TO SEE IF ISSUE RESOLVES WITH BOWEL CARE BEING DC'D.
--- NOTE | 2018-07-26 06:38 | NUR ---
SHIFT SUMMARY PT HAS HAD SEVERAL LOOSE STOOLS AND EPISODES OF N/V. OUTPUT IS NOTED IN EHR. PT HAD NEW ORDER OF PHENERGAN PLACED BY PROVIDER AND BOWEL CARE MEDS DC'D. PT WAS ABLE TO SLEEP SOME DURING SHIFT. PT IS AWAKE CURRENTLY AND STATES HE DOES NOT FEEL WELL. PT DOES HAVE SLIGHT TEMP. PT IS IN NO DISTRESS AND WATCHING TV. CALL LIGHT IN REACH.
--- NOTE | 2018-07-26 08:19 | NUR ---
PATIENT DID NOT WANT TO EAT BREAKFAST THIS SHIFT. PATIENT STATED TO ME THAT HE FELT VERY WEAK TODAY AND DID NOT FEEL GOOD. HE STATED TO ME THAT HE HAS TH RUNS TODAY AND STILL FEELS YUCKY FROM YESTERDAY FROM THROEING UP. RN WAS NOTIFIED, I ASKED THE PATIENT IF THERE WAS ANYHTING I COULD GET HIM AND HE SAID NO.
--- NOTE | 2018-07-26 14:44 | NUR ---
PATIENT DID NOT EAT LUNCH THIS SHIFT. RN NOTIFIED
--- NOTE | 2018-07-26 17:42 | NUR ---
PT AOX3 FEELING VERY NAUSEATED. PT TREATED PER EMAR FOR NAUSEA. PT DENIES PAIN, BUT HAS HAD DIRRHEA X3 TODAY. SAMPLE COLLECTED AND SENT TO LAB. PT JUST STATES HE FEELS AWFUL. PT ON BEDREST AND WILL CONTINUE TO BE MONITORED.
[2018-07-26 18:08] LABS: Adenovirus F 40/41 Not Detected (NOT DETECT); Astrovirus Not Detected (NOT DETECT); Campylobacter Sp Not Detected (NOT DETECT); Cryptosporidium Not Detected (NOT DETECT); Cyclospora Cayetanensis Not Detected (NOT DETECT); E. Coli O157 Not Detected (NOT DETECT); Entamoeba Histolytica Not Detected (NOT DETECT); Enteroaggregative E. coli-EAEC Not Detected (NOT DETECT); Enteropathogenic E. coli-EPEC Not Detected (NOT DETECT); Enterotoxigenic E. coli-ETEC Not Detected (NOT DETECT); Giardia Lamblia Not Detected (NOT DETECT); Norovirus GI/GII Detected (NOT DETECT); Plesiomonas Shigelloides Not Detected (NOT DETECT); Rotavirus A Not Detected (NOT DETECT); Salmonella Sp Not Detected (NOT DETECT); Sapovirus Not Detected (NOT DETECT); Shiga Toxin-prod E. coli-STEC Not Detected (NOT DETECT); Shigella/Enteroin E. coli-EIEC Not Detected (NOT DETECT); Vibrio Cholerae Not Detected (NOT DETECT); Vibrio Sp Not Detected (NOT DETECT); Yersinia Enterocolitica Not Detected (NOT DETECT)
--- NOTE | 2018-07-26 18:44 | NUR ---
PATIENT DID NOT WANT TO EAT DINNER THIS SHIFT DUE TO NOT FEELING WELL. RN NOTIFIED.
--- NOTE | 2018-07-27 03:15 | NUR ---
PROVIDER CALLED FOR IV FLUIDS DUE TO UNABLE TO TAKE IN PO FLUIDS. PT HAS BEEN VOMITING T/O DAY WITH DIARRHEA. IV FLUIDS ORDERED BY PROVIDER AND STARTED.
[2018-07-27 05:01] LABS: Anion Gap 9 mmol/L (6-16); Blood Urea Nitrogen 26 mg/dL (8-24); Bun/Creatinine Ratio 29.5 (12.0-20.0); CO2, Blood 22 mmol/L (21-32); Calcium, Blood 8.8 mg/dL (8.5-10.1); Chloride, Blood 102 mmol/L (98-108); Creatinine, Blood 0.88 mg/dL (0.60-1.20); Glomerular Filtration Rate >60 (60-); Glucose, Blood 119 mg/dL (70-99); Potassium, Blood 3.8 mmol/L (3.5-5.5); Sodium, Blood 133 mmol/L (136-145)
--- NOTE | 2018-07-27 07:27 | NUR ---
SHIFT SUMMARY PT SLEPT T/O SHIFT. PT HAD IV FLUIDS ORDER HIS PO INTAKE WAS POOR. PT HAD NO ACUTE ISSUES AND NO REPORTED VOMITING. PT DIARRHEA HAS REDUCED IN FREQUENCY. PT IN NO DISTRESS AND BREATHING EASY. CALL LIGHT IN REACH.
--- NOTE | 2018-07-27 17:54 | NUR ---
PT AOX3 COOPERATIVE OF CARE. PT REST AND SLEEP MOST OF THE MORNING. PT STARTED SHIFT WITH NAUSEA AND WAS TREATED PER EMAR. PT NAPPED MOST OF THE DAY. PT NOW HAS PICKED UP ON EATING HIS DINNER AND LOOK MUCH IMPROVED. PT IS NOW CALLING APPROPRIATELY AND IS REQUESTING DRINKS. WILL CONTINUE TO MONITOR.
--- NOTE | 2018-07-28 06:13 | NUR ---
SHIFT SUMMARY PT AWAKE ON/OFF T/O NIGHT. AOX4. VSS. REPORTS NAUSEA & LOTS OF GAS, STATES EVERYTIME HE MOVES HE "BURPS OR FARTS," WHICH CAUSES HIM TO HAVE INCONTINENT BM. PT HAD ROUGHLY 3 LARGE LIQUID BM (DIARRHEA), THIS SHIFT. PT REPORTS HE "FEELS WEAK" & JUST DOES NOT FEEL WELL. PT WAS MEDICATED W/PO ZOFRAN 2X & SIMETHICONE 1X PER ORDERS. THIS AM PT REPORTS A HEADACHE, MEDICATED W/ULTRAM PER ORDERS, WHEN REASSESSED PT STATES MEDICATION HAS NOT HELPED W/HEADACHE & REFUSES FURTHER MEDICATION @THIS TIME. CALL LIGHT IS IN REACH & I WILL CONT. TO MONITOR PT.
--- NOTE | 2018-07-28 09:45 | NUR ---
[facility] PROVIDER NALINI NOTIFIED THAT PT WILL NOT BE DISCHARGED TODAY PER DR HOANG, THE PT WILL MOST LIKELY DISCHARGE ON MONDAY.
--- NOTE | 2018-07-28 18:01 | NUR ---
SHIFT SUMMARY- PT A/OX4. PT WITH NOROVIRUS. PT MEDICATED X2 FOR CRAMPING PAIN TO RIGHT ABDOMEN. PT WITH POOR APETITE BUT DID DRINK FLUIDS AND STARTED WITH [employer] FOR DINNER. PT REFUSED TO GET OUT OF BED TODAY BUT AGREED TO START GETTING OUT OF BED TOMORROW. PT REPORTS BEGINNING TO FEEL BETTER. 1 STOOL THIS AM, PRN LOMOTIL GIVEN AND NO FURTHER BM'S. PT REPORTS NAUSEA HAS DECREASED. PT TO D/C TO [facility] ON MONDAY. NO OTHER ACUTE CHANGES THIS SHIFT.
--- NOTE | 2018-07-29 06:24 | NUR ---
SHIFT SUMMARY PT SLEPT WELL T/O NIGHT. AOX4. VSS. THIS AM PT REPORTS "I'M FEELING ALOT BETTER." PT HAS DENIED NAUSEA & ONLY HAD 1 LIQUID DIARRHEA BM T/O SHIFT. PT STATES HE IS GOING TO TRY EATING SOME FOOD FOR BREAKFAST & SEE HOW HE FEELS AFTERWARDS. PT DENIES PAIN OR SOB. CALL LIGHT IS IN REACH & I WILL CONT. TO MONITOR PT.
--- NOTE | 2018-07-29 13:44 | NUR ---
BEDSIDE REPORT COMPLETED TO LIZETH SERRA. PONCE TO ASSUME CARE OF PT.
--- NOTE | 2018-07-29 14:01 | NUR ---
ASSUMED CARE OF PT. PT ALERT AND ORIENTED. ASSESSMENT CONSISTENT WITH PREVIOUS RN. PT SITTING UP IN BED RESTING WITH OBVIOUS CHEST RISE AND FALL. WILL CONTINUE TO MONITOR. CALL LIGHT IN REACH.
--- NOTE | 2018-07-29 17:52 | NUR ---
SHIFT SUMMARY PT ALERT AND ORIENTED. VS HAVE BEEN STABLE. PT DENIES ANY UNMET NEEDS. NO CHANGES SINCE INITIAL ASSESSMENT. PLAN TO DISCHARGE TO [facility] TOMORROW. WILL CONTINUE TO MONITOR AND REPORT TO ONCOMING RN. CALL LIGHT IN REACH.
--- NOTE | 2018-07-30 04:09 | NUR ---
SHIFT SUMMARY PT SLEPT WELL T/O NIGHT. NO ACUTE CHANGES THIS SHIFT. AOX4. VSS. DENIES PAIN, SOB OR N/V. NO LOOSE BM THIS SHIFT. PT REPORTS HE FEELS BETTER & IS LOOKING FORWARD TO BEING DISCHARGED TO [facility] LATER TODAY. CALL LIGHT IS IN REACH & I WILL CONTINUE TO MONITOR PT.
[2018-07-30] MEDS ORDERED: TAMS.4ER PO (08:44)
[2018-07-30] MEDS ORDERED: Ferrous Sulfat325 M2 PO (08:44)
[2018-07-30] MEDS ORDERED: ALBU90OI6 INH (08:46)
--- NOTE | 2018-07-30 11:02 | NUR ---
PT REFUSED SHOWER PT OFFERED CLEAN GOWN/ROBE/PANTS FROM HOSPITAL TO DISCHARGE IN. PT ENCOURAGED TO SHOWER BEFORE DC. PT STATED HE "DOES NOT WANT TO SHOWER TODAY." PT GIVEN [facility] FOR DC. PT BELONGINGS GATHERED IN ROOM. PT PLANNED TO DC BETWEEN 1 & 2.
--- NOTE | 2018-07-30 14:14 | NUR ---
MED NEEDED DR. HOANG CALLED & NOTIFIED THAT PT HAS NO HOME MEDS. ORDERED 1 MONTH SUPPLY OF MEDICATIONS FOR PT BEFORE HE DISCHARGES TO THE [facility]. NEW MED REC FAXED & CALLED INTO PHARMACY.
--- NOTE | 2018-07-30 15:14 | NUR ---
PT DISCHARGED PT DISCHARGED IN STABLE CONDITION. PT & [facility] EDUCATED ON PT DC INSTRUCTIONS. MEDS CALLED INTO PHARMACY. PT WHEELED OUT BY THIS RN AND DRIVEN TO [facility] BY [facility]. EMPTY POLST GIVEN TO CAREGIVER TO GO OVER WITH PT. [facility] MADE FOLLOW UP APPOINTMENT FOR PT WITH HIS PCP. NO FURTHER QUESTIONS STATED BY PT AND CAREGIVERS.
== END 2018-07-30 15:06 | disposition home or self-care (01) ==
LOC: ER 13:29 → ERHOLD 13:30 → MEDS 18:18 → ENPENDDIS 07-30 09:32 → MEDS 07-30 15:06
PROVIDERS: Internal Medicine; Physician Assistant; ADMIT Hospitalist
DX: L97.422 Non-pressure chronic ulcer of left heel and midfoot with fat layer exposed (principal); I73.9 Peripheral vascular disease, unspecified; I70.262 Atherosclerosis of native arteries of extremities with gangrene, left leg; I13.0 Hypertensive heart and chronic kidney disease with heart failure and stage 1 through stage 4 chronic kidney disease, or unspecified chronic kidney disease; I50.9 Heart failure, unspecified; N18.9 Chronic kidney disease, unspecified; E03.9 Hypothyroidism, unspecified; I25.10 Atherosclerotic heart disease of native coronary artery without angina pectoris; I25.5 Ischemic cardiomyopathy; J45.909 Unspecified asthma, uncomplicated; G47.30 Sleep apnea, unspecified; I25.2 Old myocardial infarction; M06.9 Rheumatoid arthritis, unspecified; M10.9 Gout, unspecified; M19.90 Unspecified osteoarthritis, unspecified site; G62.9 Polyneuropathy, unspecified; Z89.412 Acquired absence of left great toe
CPT/HCPCS: 36415; 36600; 71045; 80048; 80053; 80069; 81001; 82550; 82553; 82803; 83735; 84100; 84484; 85025; 85027; 87086; 87507; 93005; 93010; 94010; 94640; 94664; 94667; 94760; 94762; 96361; 96365; 96366; 96367; 96372; 96375; 96376; 97110; 97116; 97161; 97166; 97530; 97535; 98960; 99285-25; 99407; G0103; G0378; G0480; J1650; J2060; J2405; J2550; J3411; J3475; J7030; J7042

== ENCOUNTER 2018-09-10 09:05 | Inpatient (IN) | payer MEDICARE, OTHER ==
[~2018-09-10] VITALS: Ht 185.4 cm; Wt 76.9 kg
[~2018-09-10 09:05] MED LIST changes: +ALBU90OI6 INH; +TAMS.4ER PO; +[UNRECOGNIZED DRUG - CODE] PO; +[UNRECOGNIZED DRUG - CODE] PO
[2018-09-10 10:48] LABS: BASOPHILS PERCENT AUTO 0 % (0-2); EOSINOPHILS ABSOLUTE AUTO 0.03 K/mm3 (0.00-0.68); EOSINOPHILS PERCENT AUTO 1 % (0-6); IMMATURE GRAN ABSOLUTE AUTO 0.04 K/mm3 (0.00-0.10); IMMATURE GRAN PERCENT AUTO 1 % (0-1); LYMPHOCYTES ABSOLUTE AUTO 1.07 K/mm3 (0.84-5.20); LYMPHOCYTES PERCENT AUTO 19 % (21-46); MONOCYTES ABSOLUTE AUTO 0.64 K/mm3 (0.16-1.47); MONOCYTES PERCENT AUTO 11 % (4-13); Mean Corpuscular HGB 26.5 pg (26.0-34.0); Mean Corpuscular HGB Conc 28.3 g/dL (31.5-36.5); Mean Corpuscular Volume 94 fL (80-100); Mean Platelet Volume 9.5 fL (9.1-12.4); NEUTROPHILS ABSOLUTE AUTO 3.81 K/mm3 (1.96-9.15); NEUTROPHILS PERCENT AUTO 68 % (41-73); Platelet Count 315 K/mm3 (150-400); RDW Coefficient Variation 17.2 % (11.7-14.2); RDW Standard Deviation 58.8 fL (35.1-46.3); Red Blood Cell Count 1.55 M/mm3 (4.30-5.90); White Blood Cell Count 5.59 K/mm3 (4.00-11.30)
[2018-09-10 10:50] LABS: Hematocrit 14.5 % (37.0-53.0); Hemoglobin 4.1 g/dL (13.5-17.5)
[2018-09-10] MEDS ORDERED: XARELTO20 MG PO (11:11)
[2018-09-10] MEDS ORDERED: TRAM50 PO (11:12)
[2018-09-10] MEDS ORDERED: TRAZ50 PO (11:12)
[2018-09-10 11:16] LABS: Alanine Aminotransfer (ALT/SGP 21 U/L (12-78); Albumin, Blood 3.3 g/dL (3.4-5.0); Albumin/Globulin Ratio 1.1 (0.8-1.8); Alk Phos 76 U/L (50-136); Anion Gap 8 mmol/L (6-16); Aspartate Aminotrans (AST/SGOT 9 U/L (12-37); Bilirubin, Total 0.4 mg/dL (0.1-1.0); Blood Urea Nitrogen 18 mg/dL (8-24); Bun/Creatinine Ratio 21.6 (12.0-20.0); CO2, Blood 23 mmol/L (21-32); Calcium, Blood 8.7 mg/dL (8.5-10.1); Chloride, Blood 106 mmol/L (98-108); Creatinine, Blood 0.83 mg/dL (0.60-1.20); Globulin, Blood 3.1 g/dL (2.2-4.0); Glomerular Filtration Rate >60 (60-); Glucose, Blood 121 mg/dL (70-99); Potassium, Blood 3.9 mmol/L (3.5-5.5); Sodium, Blood 137 mmol/L (136-145); Total Protein, Blood 6.4 g/dL (6.4-8.2); Troponin I 0.025 ng/mL (0.000-0.040)
[2018-09-10] MEDS ORDERED: IBUP800 PO (12:07)
[2018-09-10] MEDS ORDERED: Atrovent Inha12.9 GM INH (12:10)
[2018-09-10 12:48] LABS: Ethanol (Alcohol), Blood, Med <3 mg/dL; Magnesium, Blood 2.2 mg/dL (1.6-2.4)
[2018-09-10 12:51] LABS: International Normalized Ratio 1.42; Prothrombin Time Results 14.6 Sec (9.7-11.5)
[2018-09-10] MEDS ORDERED: CLARITIN10 MG PO (14:01)
--- NOTE | 2018-09-10 17:58 | NUR ---
SHIFT SUMMARY: PT NEW ADMIT FROM ED TODAY. RECIEVING THIRD UNIT OF BLOOD NOW. PT NOTIFIED HIS THAT HE IS IN HOSPITAL. DR NNUES CAME TO SEE PT AND PLAN IS FOR UPPER GI SCOPE TOMORROW AFTERNOON, NPO AFTER BREAKFAST. SIGN ON DOOR. NO FURTHER NEEDS OR CONCERNS AT THIS TIME. NO BLOODY OR TARRY STOOL NOTED SINCE ADMISSION
--- NOTE | 2018-09-10 20:20 | NUR ---
ASSESSMENT PT AWAKE SITTING UP IN BED USING URINAL. DENIES PAIN OR DISCOMFORT. MOVING SELF IN BED. LUNGS CLEAR ON ROOMAIR. RESP EVEN AND NONLABORED. DENIES SOB OR COUGH. HEART RATE REGULAR. BP HYPOTENSIVE AT TIMES. BT+ ABD SOFT AND NONTENDER. DENIES N/V. PT VOIDING CLEAR YELLOW URINE. IV 18G RIGHT WRIST WITH PRBC INFUSING. BLOOD COMPLETE. SITE FLUSHED WITHOUT DIFFICULTY. SITE CLEAR. 20G TO LEFT AC WITH PROTONIX GTT AT 10 ML/HR, SITE CLEAR. NO EDEMA
[2018-09-10 22:27] LABS: Hematocrit 21.9 % (37.0-53.0)
--- NOTE | 2018-09-10 22:47 | NUR ---
LABS DR MOORE NOTIFIED REGARDING H&H 7.0/21.9, ORDER RECEIVED TO TRANSFUSE ONE UNIT PRBC.
--- NOTE | 2018-09-10 23:27 | NUR ---
TRANSFUSION PT RESTING QUIETLY. PRBC STARTED. LUNGS CLEAR ON ROOMAIR
--- NOTE | 2018-09-11 | NUR ---
REASSESSMENT PT RESTING QUIETLY. DENIES PAIN OR DISCOMFORT. BLOOD TRANSFUSING. VSS. PT TURNING AND MOVING SELF IN BED. LUNGS CLEAR ON ROOMAIR. RESP EVEN AND NONLABORED.
[2018-09-11 04:10] LABS: Hematocrit 24.8 % (37.0-53.0); Hemoglobin 8.1 g/dL (13.5-17.5); Mean Corpuscular HGB Conc 32.7 g/dL (31.5-36.5); Mean Platelet Volume 9.3 fL (9.1-12.4); Platelet Count 250 K/mm3 (150-400); RDW Coefficient Variation 16.6 % (11.7-14.2); Red Blood Cell Count 2.89 M/mm3 (4.30-5.90); White Blood Cell Count 4.94 K/mm3 (4.00-11.30)
[2018-09-11 04:14] LABS: Mean Corpuscular Volume 86 fL (80-100)
[2018-09-11 04:29] LABS: Anion Gap 6 mmol/L (6-16); Blood Urea Nitrogen 14 mg/dL (8-24); Bun/Creatinine Ratio 15.8 (12.0-20.0); CO2, Blood 23 mmol/L (21-32); Calcium, Blood 8.2 mg/dL (8.5-10.1); Chloride, Blood 110 mmol/L (98-108); Creatinine, Blood 0.89 mg/dL (0.60-1.20); Glomerular Filtration Rate >60 (60-); Glucose, Blood 98 mg/dL (70-99); Potassium, Blood 3.8 mmol/L (3.5-5.5); Sodium, Blood 139 mmol/L (136-145)
--- NOTE | 2018-09-11 06:14 | NUR ---
SHIFT SUMMARY PT RESTING QUIETLY. RECEIVED ADDITIONAL UNIT OF PRBC DUE TO HGB OF 7.0, HGB NOW UP TO 8.1. NO BLEEDING NOTED. PT ON CLEAR LIQUID DIET UNTIL AFTER BREAKFAST. PT TO HAVE EGD THIS AM. LUNGS CLEAR ON ROOMAIR. PT TURNING AND MOVING SELF IN BED. LR AT 75 ML/HR AND PROTONIX AT 10 ML/HR. HYPOTENSION IMPROVED AFTER ADDITIONAL PRBC GIVEN. REPORT TO ON COMING NURSE
--- NOTE | 2018-09-11 08:15 | NUR ---
Recieved report from Leonora STANLEY. Patient sitting up in bed awake and oriented and able to communicate his needs. He is on RA and sats 97%. He has !8ga IV RH and dressing intact and site WNL's and isfusingLR at 75ml/hr. He also has 20ga IV in LAC dressing intact and site WNL's and is infusingProtonix at 10ml/hr. He tolertated breakfast cl. Liq. and i assist with SBA to cammode and had formed black stool. He ambulated back to bed and arranged himself without any assist to position self for comfort. He uses urinal appropriately and had 200 ml dark yellow urine. He has bilateral SCD's in place. He will be NPO from now on until scope procedure.
--- NOTE | 2018-09-11 11:41 | NUR ---
Patient has been resting in bed. Scope team is here and getting ready to scope. VSS. He tolerated meds and clear lig this am.
--- NOTE | 2018-09-11 12:41 | NUR ---
09/11/18 1241 Analisa Huddleston History, Chart, Medications and Allergies reviewed before start of procedure.PATIENT DETERMINED TO BE ASA APPROPRIATE FOR PROPOFOL SEDATION PRIOR TO START OF PROCEDURE BY .MONITOR INTACT WITH CONTINUOUS PULSE OXIMETRY AND INTERMITTENT BP.3-LEAD EKG REVIEWED WITH PHYSICIAN PRIOR TO START OF PROCEDURE.O2 VIA N/C INTACT THROUGHOUT SEDATION/PROCEDURE.
--- NOTE | 2018-09-11 14:27 | NUR ---
Scope is done and patient was found to be clear and was incontinent during procedure . He recieved bed bath and linen change. He has been changed to Med no tele and PO Protonix. VSS.
--- NOTE | 2018-09-11 18:41 | NUR ---
PT SETTLED INTO ROOM TODAY AND IS AOX4. PLEASANT WITH ALL CARE AND CALLS APPROPRIATELY. NO DISTRESS NOTED AT THIS TIME. FLUIDS RUNNING AND CALL LIGHT IN REACH BED IN LOWEST POSITION.
[2018-09-12 05:23] LABS: Hematocrit 28.2 % (37.0-53.0); Hemoglobin 8.8 g/dL (13.5-17.5); Mean Corpuscular HGB 27.9 pg (26.0-34.0); Mean Corpuscular HGB Conc 31.2 g/dL (31.5-36.5); Mean Corpuscular Volume 90 fL (80-100); Mean Platelet Volume 9.4 fL (9.1-12.4); Platelet Count 266 K/mm3 (150-400); RDW Coefficient Variation 17.1 % (11.7-14.2); RDW Standard Deviation 55.3 fL (35.1-46.3); Red Blood Cell Count 3.15 M/mm3 (4.30-5.90); White Blood Cell Count 4.68 K/mm3 (4.00-11.30)
--- NOTE | 2018-09-12 05:33 | NUR ---
VSS, AFEBRILE, A/O, PT USES THE URINAL, CALLS APPROPRIATELY AND IS IN GOOD SPIRITS. NO SIGNIFICANT CHANGES NOTED, PT'S H/H REMAINS STABLE AT THIS TIME. PT SLEPT WELL OVERNOC. WILL REPORT TO ON-COMING SHIFT.
[2018-09-12 05:45] LABS: Percent Saturation 5.4 % (20.0-50.0)
[2018-09-12 05:47] LABS: Anion Gap 5 mmol/L (6-16); Blood Urea Nitrogen 10 mg/dL (8-24); Bun/Creatinine Ratio 11.8 (12.0-20.0); CO2, Blood 24 mmol/L (21-32); Calcium, Blood 8.3 mg/dL (8.5-10.1); Chloride, Blood 114 mmol/L (98-108); Creatinine, Blood 0.85 mg/dL (0.60-1.20); Glomerular Filtration Rate >60 (60-); Glucose, Blood 99 mg/dL (70-99); Potassium, Blood 3.9 mmol/L (3.5-5.5); Sodium, Blood 143 mmol/L (136-145)
[2018-09-12] MEDS ORDERED: Ferrous Sulfat325 M2 PO (13:13)
[2018-09-12] MEDS ORDERED: Hair, Skin & N1 EACH PO (13:14)
[2018-09-12] MEDS ORDERED: Miralax17 GM PO (13:16)
--- NOTE | 2018-09-12 15:41 | NUR ---
PT DISCHARGED AT 1430, RIDE WAS ARRANGED THROUGH [facility]. PT HAD ALL PAPERS REVEIWED AND SIGNED WITH EDUCATIONAL PAPERS SENT WITH PT. PT AOX4 AND COOPERATIVE OF ALL CARE TODAY. PT ABLE TO AMUBULATE CAREFULLY ON HIS OWN. ALL PERSONAL BELONGINGS SENT WITH PT. MEDICATONS FAXED TO [facility]. NO DISTRESS NOTED. PT DENIED ANY PAIN.
== END 2018-09-12 14:23 | disposition home or self-care (01) | DRG 378 ==
LOC: ER 09:05 → ICUE 11:46 → MEDS 11:46 → ICUW 11:46 → ICUE 13:50 → MEDS 14:05 → ICUE 09-11 12:46 → MEDS 09-11 14:48 → ENPENDDIS 09-12 12:46 → MEDS 09-12 14:23
PROVIDERS: Emergency Medicine; Internal Medicine; Student in an Organized Health Care Education/Training Program; ADMIT Internal Medicine
PROC: 30233N1 Transfusion of Nonautologous Red Blood Cells into Peripheral Vein, Percutaneous Approach (ICD-10-PCS; 2018-09-11)
PROC: 0DJ08ZZ Inspection of Upper Intestinal Tract, Via Natural or Artificial Opening Endoscopic (ICD-10-PCS; principal; 2018-09-11 12:30)
PROC: 0DJD8ZZ Inspection of Lower Intestinal Tract, Via Natural or Artificial Opening Endoscopic (ICD-10-PCS; 2018-09-11 12:30)
DX: K92.0 Hematemesis (principal); D62 Acute posthemorrhagic anemia; I10 Essential (primary) hypertension; Z86.718 Personal history of other venous thrombosis and embolism; Z86.711 Personal history of pulmonary embolism; Z90.79 Acquired absence of other genital organ(s); F17.200 Nicotine dependence, unspecified, uncomplicated; J44.9 Chronic obstructive pulmonary disease, unspecified; F32.9 Major depressive disorder, single episode, unspecified; N40.0 Benign prostatic hyperplasia without lower urinary tract symptoms; I67.9 Cerebrovascular disease, unspecified; F10.20 Alcohol dependence, uncomplicated; K44.9 Diaphragmatic hernia without obstruction or gangrene; Z66 Do not resuscitate; D50.9 Iron deficiency anemia, unspecified
CPT/HCPCS: 36415; 36430; 71045; 80048; 80053; 82728; 83540; 83550; 83735; 83880; 84484; 85014; 85018; 85025; 85027; 85610; 86850; 86900; 86901; 86923; 93005; 93010; 94640; 94760; 96365; 96376; 99285-25; C9113; G0480; J0171; J2704; J7030; J7050; J7120; P9016

== ENCOUNTER 2018-11-01 11:57 | Day surgery (SDC) | payer MEDICARE, OTHER ==
[~2018-11-01] VITALS: Ht 185.4 cm; Wt 79.3 kg
[~2018-11-01 11:57] MED LIST changes: +Atrovent Inha12.9 GM INH; +CLARITIN10 MG PO; +Ferrous Sulfat325 MG PO; +Hair, Skin & N1 EACH PO; +IBUP800 PO; +Ipratropium Bro15 ML INH; +MIRALAX17 GM PO; +Milk Of Ma400 MG/5 M PO; +Miralax17 GM PO; +Multiple Vitam1 EAC1 PO; +Prilosec Otc20 MG PO; +TRAM50 PO; +TRAZ50 PO; +XARELTO20 MG PO
--- NOTE | 2018-11-01 14:06 | NUR ---
11/01/18 1406 Cynthia Kerr SIMETHECONE WITH STERILE WATER INSERTED THROUGH BIOPSY PORT TO RINSE BILE
== END 2018-11-01 15:15 | disposition home or self-care (01) ==
LOC: ORSCSDS 11:57
PROVIDERS: Student in an Organized Health Care Education/Training Program
PROC: 0DBM8ZX Excision of Descending Colon, Via Natural or Artificial Opening Endoscopic, Diagnostic (ICD-10-PCS; principal; 2018-11-01 13:00)
PROC: 0DBH8ZX Excision of Cecum, Via Natural or Artificial Opening Endoscopic, Diagnostic (ICD-10-PCS; principal; 2018-11-01 13:00)
PROC: 0DBL8ZX Excision of Transverse Colon, Via Natural or Artificial Opening Endoscopic, Diagnostic (ICD-10-PCS; principal; 2018-11-01 13:00)
DX: D50.9 Iron deficiency anemia, unspecified (principal); D12.3 Benign neoplasm of transverse colon; D12.4 Benign neoplasm of descending colon; K63.3 Ulcer of intestine; Q27.33 Arteriovenous malformation of digestive system vessel; K57.30 Diverticulosis of large intestine without perforation or abscess without bleeding; I10 Essential (primary) hypertension; J44.9 Chronic obstructive pulmonary disease, unspecified; Z86.718 Personal history of other venous thrombosis and embolism; Z79.01 Long term (current) use of anticoagulants; Z87.891 Personal history of nicotine dependence; Z79.899 Other long term (current) drug therapy
CPT/HCPCS: 88305; J2704; J7120

== ENCOUNTER → 2019-04-08 | Outpatient (CLI) | payer MEDICARE, OTHER ==
[~2019-04-08] MED LIST changes: +CEPHALEXIN500 MG PO; +Keflex500 MG PO; +XARELTO20 M1 PO; +ZOLOFT25 MG PO
== END ==
LOC: LAB SHORT 17:00 → LAB 17:00
DX: Z48.817 Encounter for surgical aftercare following surgery on the skin and subcutaneous tissue (principal); Z48.02 Encounter for removal of sutures; L08.9 Local infection of the skin and subcutaneous tissue, unspecified
CPT/HCPCS: 87070; 87205

== ENCOUNTER 2019-10-24 08:47 | Day surgery (SDC) | payer MEDICARE, OTHER ==
[~2019-10-24] VITALS: Ht 185.4 cm; Wt 82.7 kg
== END 2019-10-24 11:25 | disposition home or self-care (01) ==
LOC: ORSCSDS 08:47
PROVIDERS: Student in an Organized Health Care Education/Training Program
PROC: 0DBN8ZX Excision of Sigmoid Colon, Via Natural or Artificial Opening Endoscopic, Diagnostic (ICD-10-PCS; principal; 2019-10-24 10:00)
PROC: 0DBP8ZX Excision of Rectum, Via Natural or Artificial Opening Endoscopic, Diagnostic (ICD-10-PCS; principal; 2019-10-24 10:00)
PROC: 3E0H8GC Introduction of Other Therapeutic Substance into Lower GI, Via Natural or Artificial Opening Endoscopic (ICD-10-PCS; principal; 2019-10-24 10:00)
PROC: 0DBH8ZX Excision of Cecum, Via Natural or Artificial Opening Endoscopic, Diagnostic (ICD-10-PCS; principal; 2019-10-24 10:00)
DX: D50.9 Iron deficiency anemia, unspecified (principal); Z86.010 Personal history of colon polyps; D12.5 Benign neoplasm of sigmoid colon; D12.0 Benign neoplasm of cecum; K62.1 Rectal polyp; Q27.33 Arteriovenous malformation of digestive system vessel; K57.30 Diverticulosis of large intestine without perforation or abscess without bleeding; K64.8 Other hemorrhoids; I10 Essential (primary) hypertension; Z86.73 Personal history of transient ischemic attack (TIA), and cerebral infarction without residual deficits; F17.210 Nicotine dependence, cigarettes, uncomplicated; Z86.718 Personal history of other venous thrombosis and embolism; E78.5 Hyperlipidemia, unspecified; Z79.01 Long term (current) use of anticoagulants; Z79.899 Other long term (current) drug therapy
CPT/HCPCS: 88305; J2704; J7120

== ENCOUNTER 2020-07-21 09:00 | Day surgery (SDC) | payer MEDICARE, OTHER ==
[~2020-07-21] VITALS: Ht 172.7 cm; Wt 85.9 kg
[~2020-07-21 09:00] MED LIST changes: +DULCOLAX400 MG/5 M PO; +FERSU300 PO; +IPRATROPIUM BRO30 ML INH; +LORA10ER PO; +MULTIPLE VITAM1 EACH PO; +OMEP20ER PO; +ZOLOFT50 MG PO
== END 2020-07-21 11:24 | disposition home or self-care (01) ==
LOC: ORSCSDS 09:00
PROVIDERS: Ophthalmology
PROC: 08RJ3JZ Replacement of Right Lens with Synthetic Substitute, Percutaneous Approach (ICD-10-PCS; principal; 2020-07-21 10:30)
DX: H25.11 Age-related nuclear cataract, right eye (principal); H21.81 Floppy iris syndrome; I10 Essential (primary) hypertension; K21.9 Gastro-esophageal reflux disease without esophagitis; Z79.01 Long term (current) use of anticoagulants; Z79.899 Other long term (current) drug therapy; F17.210 Nicotine dependence, cigarettes, uncomplicated
CPT/HCPCS: A9270; J2001; J2250; J3010; J3301; J7040; V2632

== ENCOUNTER 2020-08-27 07:45 | Day surgery (SDC) | payer MEDICARE, OTHER ==
[~2020-08-27] VITALS: Ht 182.9 cm; Wt 86.2 kg
== END 2020-08-27 09:57 | disposition home or self-care (01) ==
LOC: ORSCSDS 07:45
PROC: 08RK3JZ Replacement of Left Lens with Synthetic Substitute, Percutaneous Approach (ICD-10-PCS; principal; 2020-08-27)
DX: H25.12 Age-related nuclear cataract, left eye (principal); H21.81 Floppy iris syndrome; I10 Essential (primary) hypertension; J44.9 Chronic obstructive pulmonary disease, unspecified; F17.210 Nicotine dependence, cigarettes, uncomplicated; Z86.73 Personal history of transient ischemic attack (TIA), and cerebral infarction without residual deficits; Z79.01 Long term (current) use of anticoagulants; Z79.899 Other long term (current) drug therapy
CPT/HCPCS: A9270; J2001; J2250; J3010; J3301; J7040; V2632

== ENCOUNTER 2021-07-26 15:11 | Observation (INO) | payer MEDICARE, OTHER ==
[~2021-07-26] VITALS: Ht 182.9 cm; Wt 85.4 kg
[~2021-07-26 15:11] MED LIST changes: +COMBIVENT RESPIM4 G1 INH; -IPRATROPIUM BRO30 ML INH
[2021-07-26 15:25] LABS: Calcium, Ionized (POC) 1.14 mmol/L (1.10-1.46); Chloride (POC) 106 mmol/L (98-108); Creatinine (POC) 1.6 mg/dL (0.8-1.3); Glucose (ISTAT POC) 170 mg/dL (70-99); Hemoglobin (POC) 11.9 g/dL (13.5-17.5); Potassium (POC) 3.7 mmol/L (3.5-5.5); Sodium (POC) 141 mmol/L (135-148); Total CO2 (POC) 18 mmol/L (21-32)
[2021-07-26 15:54] LABS: BASOPHILS ABSOLUTE AUTO 0.04 K/mm3 (0.00-0.23); BASOPHILS PERCENT AUTO 1 % (0-2); EOSINOPHILS ABSOLUTE AUTO 0.15 K/mm3 (0.00-0.68); EOSINOPHILS PERCENT AUTO 2 % (0-6); Hematocrit 36.4 % (37.0-53.0); Hemoglobin 11.5 g/dL (13.5-17.5); IMMATURE GRAN ABSOLUTE AUTO 0.05 K/mm3 (0.00-0.10); IMMATURE GRAN PERCENT AUTO 1 % (0-1); LYMPHOCYTES ABSOLUTE AUTO 1.08 K/mm3 (0.84-5.20); LYMPHOCYTES PERCENT AUTO 16 % (21-46); MONOCYTES ABSOLUTE AUTO 0.48 K/mm3 (0.16-1.47); MONOCYTES PERCENT AUTO 7 % (4-13); Mean Corpuscular HGB 33.1 pg (26.0-34.0); Mean Corpuscular HGB Conc 31.6 g/dL (31.5-36.5); Mean Corpuscular Volume 105 fL (80-100); Mean Platelet Volume 9.6 fL (9.1-12.4); NEUTROPHILS ABSOLUTE AUTO 5.06 K/mm3 (1.96-9.15); NEUTROPHILS PERCENT AUTO 74 % (41-73); Platelet Count 264 K/mm3 (150-400); RDW Coefficient Variation 13.2 % (11.7-14.2); RDW Standard Deviation 50.6 fL (35.1-46.3); Red Blood Cell Count 3.47 M/mm3 (4.30-5.90); White Blood Cell Count 6.86 K/mm3 (4.00-11.30)
[2021-07-26 16:11] LABS: International Normalized Ratio 1.19; Prothrombin Time Results 12.4 Sec (9.7-11.5)
[2021-07-26 16:20] LABS: Albumin, Blood 3.3 g/dL (3.4-5.0); Albumin/Globulin Ratio 1.2 (0.8-1.8); Bilirubin, Total 0.1 mg/dL (0.1-1.0); Bun/Creatinine Ratio 15.3 (12.0-20.0); Calcium, Blood 8.1 mg/dL (8.5-10.1); Creatinine, Blood 1.31 mg/dL (0.60-1.20); Globulin, Blood 2.8 g/dL (2.2-4.0); Potassium, Blood 3.7 mmol/L (3.5-5.5); Total Protein, Blood 6.1 g/dL (6.4-8.2)
[2021-07-26 16:21] LABS: Source, Urine Voided
[2021-07-26 16:42] LABS: Appearance, Urine Clear (Clear); Bilirubin, Urine Neg (Neg); Blood, Urine 3+ (Neg); Color, Urine Yellow (P-Yellow); Glucose Qualitative, Urine Neg (Neg); Ketones, Urine Neg (Neg); Leukocyte Esterase, Urine 1+ (Neg); Nitrite, Urine Neg (Neg); Protein, Urine 2+ (Neg); Urobilinogen, Urine NORM (Normal)
[2021-07-26 17:09] LABS: Red Blood Cells, Urine TNTC /hpf (0-2); White Blood Cells, Urine 25-50 /hpf (0-5)
[2021-07-26 17:10] LABS: Bacteria Mod /hpf; Squamous Epithelial Cells Rare /hpf (Few)
[2021-07-26 17:12] LABS: U Amphetamine Screen Not Detected; U Barbituate Screen Not Detected; U Benzodiazapine Screen Not Detected; U Buprenorphine Screen Not Detected; U Cannabinoids Screen Not Detected; U Cocaine Screen Not Detected; U Methadone Screen Not Detected; U Methamphetamine Screen Not Detected; U Opiates Screen Not Detected; U Oxycodone Screen Not Detected; U Phencyclidine Screen Not Detected; U Propoxyphene Screen Not Detected
[2021-07-26 23:30] LABS: Hematocrit 37.5 % (37.0-53.0); Hemoglobin 12.5 g/dL (13.5-17.5)
--- NOTE | 2021-07-27 04:57 | NUR ---
SHIFT SUMMARY: PATIENT ADMITTED FROM ED, SOILED WITH BM WEN IN PLACE DRAINING CLEAR YELLOW URINE. PATIENT SKIN CLEANSED AND CATH CARE PERFORMED. NOTED MULTIPLE LACERATIONS, CONTUSIONS, AND ECCYMOSIS THROUGHOUT. PATIENT COMPLAINS OF HEADACHE AND GENERALIZED PAIN BUT DENIES NEED FOR PHARMALOGICAL INTERVNTIONS. TELE= NSR 70S. E/U RESP, EXP WHEEZE NOTED. NO SIGNIFICANT EVENTS ON NOC. WCTM.
[2021-07-27 07:40] LABS: BASOPHILS ABSOLUTE AUTO 0.01 K/mm3 (0.00-0.23); BASOPHILS PERCENT AUTO 0 % (0-2); EOSINOPHILS ABSOLUTE AUTO 0.07 K/mm3 (0.00-0.68); EOSINOPHILS PERCENT AUTO 1 % (0-6); Hematocrit 35.8 % (37.0-53.0); Hemoglobin 12.1 g/dL (13.5-17.5); IMMATURE GRAN ABSOLUTE AUTO 0.04 K/mm3 (0.00-0.10); IMMATURE GRAN PERCENT AUTO 1 % (0-1); LYMPHOCYTES ABSOLUTE AUTO 0.55 K/mm3 (0.84-5.20); LYMPHOCYTES PERCENT AUTO 6 % (21-46); MONOCYTES ABSOLUTE AUTO 0.92 K/mm3 (0.16-1.47); MONOCYTES PERCENT AUTO 11 % (4-13); Mean Corpuscular HGB 33.5 pg (26.0-34.0); Mean Corpuscular HGB Conc 33.8 g/dL (31.5-36.5); Mean Platelet Volume 9.4 fL (9.1-12.4); NEUTROPHILS ABSOLUTE AUTO 7.03 K/mm3 (1.96-9.15); NEUTROPHILS PERCENT AUTO 82 % (41-73); Platelet Count 225 K/mm3 (150-400); RDW Standard Deviation 51.4 fL (35.1-46.3); Red Blood Cell Count 3.61 M/mm3 (4.30-5.90); White Blood Cell Count 8.62 K/mm3 (4.00-11.30)
[2021-07-27 07:42] LABS: Mean Corpuscular Volume 99 fL (80-100)
[2021-07-27 07:58] LABS: Alanine Aminotransfer (ALT/SGP 23 U/L (12-78); Albumin, Blood 3.3 g/dL (3.4-5.0); Albumin/Globulin Ratio 1.2 (0.8-1.8); Alk Phos 86 U/L (50-136); Anion Gap 5 mmol/L (6-16); Aspartate Aminotrans (AST/SGOT 20 U/L (12-37); Bilirubin, Total 0.3 mg/dL (0.1-1.0); Blood Urea Nitrogen 11 mg/dL (8-24); Bun/Creatinine Ratio 14.4 (12.0-20.0); CO2, Blood 25 mmol/L (21-32); Calcium, Blood 7.9 mg/dL (8.5-10.1); Chloride, Blood 108 mmol/L (98-108); Creatinine, Blood 0.76 mg/dL (0.60-1.20); Globulin, Blood 2.7 g/dL (2.2-4.0); Glomerular Filtration Rate >60 (60-); Glucose, Blood 155 mg/dL (70-99); Potassium, Blood 3.9 mmol/L (3.5-5.5); Sodium, Blood 138 mmol/L (136-145)
--- NOTE | 2021-07-27 13:05 | NUR ---
DISCHARGE PATIENT TRANSPORTED VIA WHEELCHAIR TO PRIVATE VEHICLE. DISCHARGE INSTRUCTIONS EXPLAINED TO PATIENT. PATIENT STATED UNDERSTANDING. PACKET SENT WITH PATIENT. PACKET ALSO FAXED TO [facility]. IV X2 REMOVED WITHOUT DIFFICULTY. TELE REMOVED WITHOUT DIFFICULTY. MEDICATIONS FAXED TO PREFERRED PHARMACY. PATIENT/CAREGIVER TO SCHEDULE FOLLOW UP APPOINTMENT.
== END 2021-07-27 12:44 | disposition home or self-care (01) ==
LOC: ER 15:11 → MEDS 15:12 → SURS 15:12 → MEDS 20:00
PROVIDERS: Emergency Medicine; ADMIT Internal Medicine
DX: I95.9 Hypotension, unspecified (principal); S01.02XA Laceration with foreign body of scalp, initial encounter; S60.222A Contusion of left hand, initial encounter; S40.012A Contusion of left shoulder, initial encounter; S02.2XXA Fracture of nasal bones, initial encounter for closed fracture; I10 Essential (primary) hypertension; K21.9 Gastro-esophageal reflux disease without esophagitis; F17.290 Nicotine dependence, other tobacco product, uncomplicated; F17.210 Nicotine dependence, cigarettes, uncomplicated; J43.9 Emphysema, unspecified; I44.0 Atrioventricular block, first degree; K44.9 Diaphragmatic hernia without obstruction or gangrene; K57.30 Diverticulosis of large intestine without perforation or abscess without bleeding; K40.90 Unilateral inguinal hernia, without obstruction or gangrene, not specified as recurrent; D64.9 Anemia, unspecified; N17.9 Acute kidney failure, unspecified; N40.0 Benign prostatic hyperplasia without lower urinary tract symptoms; F10.129 Alcohol abuse with intoxication, unspecified; Y90.8 Blood alcohol level of 240 mg/100 ml or more; Z88.8 Allergy status to other drugs, medicaments and biological substances; V89.2XXA Person injured in unspecified motor-vehicle accident, traffic, initial encounter
CPT/HCPCS: 36415; 36430; 51702; 70450; 71045; 71260; 72125; 72170; 73060; 73130; 74177; 80047; 80053; 81001; 82272; 83690; 85014; 85018; 85025; 85610; 86850; 86900; 86901; 86920; 87086; 93005; 93010; 94640; 94664; 94760; 96374; 96375; 96376; 99285-25; A9270; G0378; G0480; J2405; J3010; J3411; J3475; J7030; J7042; P9016; Q9967